=== PATIENT | female | born 1940 | race Caucasian/White ===

== ENCOUNTER → 2017-04-20 13:38 | Outpatient (CLI) | payer MEDICARE, SELFPAY ==
--- NOTE | 2017-04-20 13:40 | ECHOCS_ITS ---
Reason For Study: DYSPNEA Procedure This was a 2D Doppler, Color Flow transthoracic echocardiogram. Exam performed in department. Left Ventricle Normal LV size. Left ventricular systolic function is normal. The estimated ejection fraction is 60 %. No evidence for diastolic dysfunction. No regional wall motion abnormalities noted. Right Ventricle Normal RV size. Normal systolic function. Atria Normal left atrium. Normal right atrium. Mitral Valve Normal mitral valve. Tricuspid Valve Normal tricuspid valve. Mild (1+) tricuspid valve insufficiency. Pulmonary artery systolic pressure is 29 mmHg. Aortic Valve Normal aortic valve. Trisinus/trileaflet aortic valve. Pulmonic Valve Normal pulmonic valve. Great Vessels Normal aortic root. The pulmonary artery is normal size. Normal inferior vena cava. Pericardium/Pleural No pericardial effusion. MMode/2D Measurements & Calculations LVIDd: 3.7 cm IVSd: 0.79 cm Ao root diam: 3.0 cm LVIDs: 2.6 cm LVPWd: 0.91 cm LA dimension: 2.4 cm RVDd: 3.6 cm FS: 30.4 % LAV(MOD-bp): 39.3 ml LVAd ap4: 23.4 cm2 EDV(MOD-sp2): 37.6 ml LAV(MOD-bp) Indexed: 24.3 ml/m2 EDV(MOD-sp4): 65.8 ml EF(MOD-sp2): 26.1 % LAV(MOD-sp2): 40.1 ml EDV(sp4-el): 62.7 ml LAV(MOD-sp4): 33.7 ml LVAs ap4: 16.0 cm2 ESV(MOD-sp4): 34.3 ml ESV(sp4-el): 32.8 ml EF(MOD-sp4): 47.8 % EF(sp4-el): 47.6 % SV(MOD-sp4): 31.5 ml SV(MOD-sp2): 9.8 ml SV(sp4-el): 29.8 ml LA A4 area: 14.6 cm2 RA A4 area: 13.0 cm2 Doppler Measurements & Calculations MV E max ana: 68.3 cm/sec Ao V2 max: 108.6 cm/sec LV V1 max: 77.6 cm/sec MV A max ana: 51.0 cm/sec Ao max P.7 mmHg LV V1 max P.4 mmHg MV E/A: 1.3 PA V2 max: 74.7 cm/sec TR max ana: 242.1 cm/sec TR max P.2 mmHg Interpretation Summary Normal LV size. Left ventricular systolic function is normal. The estimated ejection fraction is 60 %. No evidence for diastolic dysfunction. Structurally normal valves. Ordering Physician: Britney Quinn Referring Physician: CHAS RAYMUNDO Performed By: Sonia Childers RDCS, RVT
== END ==
PROVIDERS: Family Provider Internal Medicine; PCP Internal Medicine; Visit Provider Nurse Practitioner Acute Care
DX: R06.09 Other forms of dyspnea (principal)
CPT/HCPCS: 93306

== ENCOUNTER → 2017-06-19 13:42 | Outpatient (CLI) | payer MEDICARE, SELFPAY ==
--- NOTE | 2017-06-19 13:43 | CT_ITS ---
STUDY: CT CHEST WITHOUT CONTRAST REASON FOR EXAM: Female, 77 years old. Areas of breath hypertension RADIATION DOSAGE (If Supplied By Facility): CTDIvol = ( 6.19 ) mGy, DLP = ( 249.19 ) mGycm TECHNIQUE: Transaxial imaging was performed without the administration of intravenous contrast material. Multiplanar coronal and sagittal images were reformatted. Individualized dose optimization techniques were used for this CT. COMPARISON: October 05, 2015 CT scan chest FINDINGS: There is trace amount of scarring in the lung bases. There are areas of subtle groundglass opacity intermixed with hypodensity suggesting areas of air trapping. There is borderline bronchiectasis. There is minimal emphysematous change present. There is biapical scarring. There is no evidence of focal consolidation pleural effusion or pneumothorax. There is no demonstrated pleural abnormality. There is mild cardiac enlargement there are coronary calcifications. There is a precarinal lymph node measuring 8.8 mm. There is calcification in the left hilum. Normal unenhanced pulmonary arteries. The ascending thoracic aorta measures 3.2 x 1.3 cm. It is partially calcified and tapers towards the arch. There are multi-level degenerative changes of the thoracic spine. There is nonspecific bilateral pelviectasis. There is a minimal hiatal hernia. CT/Chest without Contrast IMPRESSION: Findings are most suggestive of areas of air-trapping hyperinflation of the lungs and chronic obstructive pulmonary disease without evidence of focal consolidation. There is borderline bronchiectasis. Mild cardiac enlargement coronary artery calcification. Bilateral renal pelviectasis recommend follow-up renal ultrasound. Electronically Signed: Tata Cheek MD at 23:46 EDT Tel , Service support ,
== END ==
PROVIDERS: Family Provider Internal Medicine; PCP Internal Medicine; Visit Provider Nurse Practitioner Acute Care
DX: R06.09 Other forms of dyspnea (principal); R06.02 Shortness of breath
CPT/HCPCS: 71250

== ENCOUNTER → 2017-06-22 09:45 | Outpatient (CLI) | payer MEDICARE, SELFPAY ==
--- NOTE | 2017-06-22 09:50 | RAD_ITS ---
STUDY: SNIFF TEST. REASON FOR EXAM: Female, 77 years old. Shortness of breath on exertion. FLUOROSCOPY TIME (if supplied): (0:14) minutes/seconds TECHNIQUE: Inspiratory and expiratory efforts were noted with fluoroscopy. COMPARISON: None. FINDINGS: Hyperinflation. Normal movement of the right and left diaphragms. RAD/Fluoroscopy 1 Hr or Less IMPRESSION: Normal movement of both hemidiaphragms. Electronically Signed: Charles Burgos MD at 10:32 EDT Tel [phone], Service support ,
== END ==
PROVIDERS: Family Provider Internal Medicine; PCP Internal Medicine; Visit Provider Internal Medicine
DX: R06.02 Shortness of breath (principal)
CPT/HCPCS: 76000

== ENCOUNTER → 2017-09-26 12:38 | Outpatient (CLI) | payer MEDICARE, SELFPAY ==
--- NOTE | 2017-09-27 08:34 | PFT ---
INTRODUCTION: The patient is a 77-year-old female that presents for pulmonary function testing secondary to a diagnosis of bronchiectasis. Respiratory therapy reports good patient effort. Bronchodilators were used during testing. INTERPRETATION: Forced expiration spirometry demonstrates no evidence of a large airways obstructive ventilatory defect. There was no significant response to aerosolized bronchodilators. Spirograms are of good quality and plateau gradually indicating slow emptying of the lungs. Body plethysmography was performed and reveals a decreased TLC to 3.87 L, 81% of predicted, indicative of a mild restrictive ventilatory defect. The remainder of the lung volumes are symmetrically reduced. Diffusing capacity by single breath CO is within normal limits at 80% of predicted. IMPRESSION: These pulmonary function studies demonstrate the presence of an isolated mild restrictive ventilatory defect with preserved diffusing capacity.
== END ==
PROVIDERS: Family Provider Internal Medicine; PCP Internal Medicine; Visit Provider Internal Medicine Critical Care Medicine
DX: J47.9 Bronchiectasis, uncomplicated (principal)
CPT/HCPCS: 94060; 94726; 94729

== ENCOUNTER → 2017-11-19 10:43 | Outpatient (CLI) | payer MEDICARE, SELFPAY ==
[2017-11-19 11:16] VITALS: PULSE 70; PULSE 73; PULSE 78; PULSE 81; PULSE 83; PULSE 84; O2SAT 100; O2SAT 95; O2SAT 96; O2SAT 97; O2SAT 98
--- NOTE | 2017-11-19 13:41 | PCM.PSN.6M ---
PSN 6 Minute Walk Test - 6 Minute Walk Test 6 Minute Walk Test: 6 Minute Walk Test PSN:6-Minute Walk Test Start: 11/19/17 11:16 Freq: Status: Active Protocol: RESP.6MINW Document 11/19/17 11:16 LISS (Rec: 11/19/17 11:18 LISS [id number]) 6 Minute Walk Test Date Performed 11/19/17 Time Performed 11:00 Height 5 ft 5 in Weight: 130 lb Weight in Pounds 130.[address]: Lito Medrano Assistive device used: None Pre-test Oxygen Delivery Method Room Air Pulse Ox (%) 100 Pulse Rate (60-100 beats/min) 73 Dyspnea Bing Scale (0-10) 0 Exertion Bing Scale (6-20) 6 1st minute Oxygen Delivery Method Room Air Pulse Ox (%) 97 Pulse Rate (60-100 beats/min) 78 2nd minute Oxygen Delivery Method Room Air Pulse Ox (%) 96 Pulse Rate (60-100 beats/min) 81 3rd minute Oxygen Delivery Method Room Air Pulse Ox (%) 97 Pulse Rate (60-100 beats/min) 83 4th minute Oxygen Delivery Method Room Air Pulse Ox (%) 96 Pulse Rate (60-100 beats/min) 84 5th minute Oxygen Delivery Method Room Air Pulse Ox (%) 98 Pulse Rate (60-100 beats/min) 84 6th minute Oxygen Delivery Method Room Air Pulse Ox (%) 95 Pulse Rate (60-100 beats/min) 83 Dyspnea Bing Scale (0-10) 0.5 Exertion Bing Scale (6-20) 13 Post-test Oxygen Delivery Method Room Air Pulse Ox (%) 95 Pulse Rate (60-100 beats/min) 70 Full Laps Walked 15 Partial Lap, Number of Tiles Walked 25 Total Distance Walked (ft) 910 - Interpretation Interpretation: The patient ambulated 910 feet over the course of 6 minutes beginning on room air without assistive devices or breaks. Pretesting oxygen saturation was noted to be 100% on room air. With ambulation, the esme oxygen saturation was 95%. This represents a significant exertional oxygen desaturation. - Recommendations Recommendations: There is no indication for the use of supplemental oxygen at this time. However, close interval follow-up is recommended, given the degree of oxygen desaturation noted during this study.
== END ==
PROVIDERS: Family Provider Internal Medicine; PCP Internal Medicine; Referring Provider Nurse Practitioner Acute Care; Visit Provider Nurse Practitioner Acute Care
DX: R06.09 Other forms of dyspnea (principal)
CPT/HCPCS: 94618

== ENCOUNTER → 2018-03-22 10:54 | Outpatient (CLI) | payer MEDICARE, SELFPAY ==
[2018-01-17 13:05] VITALS: BMI 22.1
--- NOTE | 2018-03-22 10:56 | ECHOD_ITS ---
Version 2 Reason For Study: MITRAL VALVE PROLAPSE Procedure This was a 2D Doppler, Color Flow transthoracic echocardiogram. The exam was of adequate technical quality. Exam performed in department. Left Ventricle Normal LV size. Left ventricular systolic function is normal. The estimated ejection fraction is 60 %. No evidence for diastolic dysfunction. No regional wall motion abnormalities noted. Right Ventricle Normal RV size. Normal systolic function. Atria Normal left atrium. Normal right atrium. Aneurysmal atrial septum. No doppler evidence for ASD. Mitral Valve Equivocal mitral valve prolapse. Trivial mitral valve insufficiency. Tricuspid Valve Normal tricuspid valve. Trivial tricuspid valve insufficiency. Right ventricular systolic pressure estimated to be 30 mmHg. Aortic Valve Trisinus/trileaflet aortic valve. Normal aortic valve. Pulmonic Valve The pulmonic valve is not well visualized. Trivial pulmonic valve insufficiency. Great Vessels Normal sized aortic root. Pericardium/Pleural No pericardial effusion. MMode/2D Measurements & Calculations LVIDd: 3.8 cm IVSd: 0.77 cm Ao root diam: 2.8 cm LVIDs: 2.7 cm LVPWd: 0.81 cm RVDd: 3.6 cm FS: 28.7 % LAV(MOD-bp): 51.8 ml LVAd ap4: 29.2 cm2 SV(MOD-sp4): 54.4 ml LAV(MOD-bp) Indexed: 31.8 ml/m2 EDV(MOD-sp4): 89.5 ml LAV(MOD-sp2): 58.1 ml EDV(sp4-el): 92.6 ml LAV(MOD-sp4): 39.7 ml LVAs ap4: 16.9 cm2 ESV(MOD-sp4): 35.1 ml ESV(sp4-el): 37.1 ml EF(MOD-sp4): 60.7 % EF(sp4-el): 59.9 % SV(sp4-el): 55.5 ml LA A4 area: 17.1 cm2 LA dimension(2D): 2.8 cm RA A4 area: 14.2 cm2 Time Measurements MV dec time: 0.18 sec Doppler Measurements & Calculations MV E max arya: 95.5 cm/sec Lat Peak E' Arya: 12.4 cm/sec Med Peak E' Arya: 9.2 cm/sec MV A max arya: 69.1 cm/sec E/E' lat: 7.7 E/E' med: 10.4 MV E/A: 1.4 Ao V2 max: 126.9 cm/sec LV V1 max: 93.5 cm/sec PA V2 max: 71.6 cm/sec Ao max P.4 mmHg LV V1 max P.5 mmHg PI end-d arya: 88.5 cm/sec TR max arya: 259.1 cm/sec TR max P.9 mmHg Interpretation Summary Left ventricular systolic function is normal. The estimated ejection fraction is 60 %. Equivocal mitral valve prolapse. Trivial mitral valve insufficiency. Trivial tricuspid valve insufficiency. Trivial pulmonic valve insufficiency. Aneurysmal atrial septum. Right ventricular systolic pressure estimated to be 30 mmHg. No evidence for diastolic dysfunction. Ordering Physician: Apollo Guerrero Referring Physician: Diane Christianson Performed By: Maria Luz Lerner RDCS
== END ==
PROVIDERS: Family Provider Internal Medicine; PCP Internal Medicine; Referring Provider Internal Medicine; Visit Provider Internal Medicine
DX: I34.1 Nonrheumatic mitral (valve) prolapse (principal); I34.2 Nonrheumatic mitral (valve) stenosis
CPT/HCPCS: 93306

== ENCOUNTER → 2018-04-02 12:02 | Outpatient (CLI) | payer MEDICARE, SELFPAY ==
[2018-01-17 13:05] VITALS: BMI 22.1
--- NOTE | 2018-04-02 12:04 | BI_ITS ---
MAMMOGRAPHY - BILATERAL SCREENING REASON FOR EXAM: Female, 78 years old. Routine annual screening examination. PERTINENT HISTORY: Non-contributory. TECHNIQUE: Digital bilateral breast lorin (3D mammographic acquisition) in the CC and MLO projections. 2-D mediolateral oblique (MLO) and craniocaudad (CC) views of both breasts were obtained. CAD: Full Field Digital Mammography with Computer Added Detection was performed. COMPARISON: Comparison is made with prior study dated May 24, 2016 and May 04, 2014. FINDINGS: Breast Composition: The breasts are extremely dense, which lowers the sensitivity of mammography. There are no dominant masses or suspicious calcifications. No other significant abnormalities are identified. There has been no significant change since the prior study. BI/SCREENING MAMM (CAD), BILAT IMPRESSION: Stable bilateral screening mammogram. Yearly follow-up mammogram recommended. (A) ASSESSMENT CATEGORY: BIRADS Category 1: Negative. A letter regarding these results will be sent to the patient by the facility within 30 days. Approximately 10% of breast cancers are not detected by mammography. A normal mammogram should not delay biopsy of a clinically suspicious abnormality. [id number] Electronically Signed: Charles Burgos MD at 15:07 EST , Service support ,
== END ==
PROVIDERS: Family Provider Internal Medicine; PCP Internal Medicine; Referring Provider Internal Medicine; Visit Provider Internal Medicine
DX: Z12.31 Encounter for screening mammogram for malignant neoplasm of breast (principal)
CPT/HCPCS: 77063; 77067

== ENCOUNTER → 2018-07-15 14:44 | Outpatient (CLI) | payer MEDICARE, SELFPAY ==
[2018-07-15 13:59] VITALS: BMI 23.0
--- NOTE | 2018-07-15 14:54 | CPS ---
Did outpatient teaching & cleaning of PEP device.
== END ==
PROVIDERS: Family Provider Internal Medicine; PCP Internal Medicine; Referring Provider Nurse Practitioner Acute Care; Visit Provider Nurse Practitioner Acute Care
DX: R06.02 Shortness of breath (principal)
CPT/HCPCS: 94667

== ENCOUNTER → 2019-01-08 12:21 | Outpatient (CLI) | payer MEDICARE, SELFPAY ==
[2018-07-15 13:59] VITALS: BMI 23.0
[2018-10-17 10:20] VITALS: BMI 23.5
[2019-01-08 12:28] VITALS: PULSE 70; PULSE 72; PULSE 78; PULSE 85; PULSE 86; PULSE 87; O2SAT 90; O2SAT 92; O2SAT 93; O2SAT 94; O2SAT 98
--- NOTE | 2019-01-08 15:08 | PCM.PSN.6M ---
PSN 6 Minute Walk Test - 6 Minute Walk Test 6 Minute Walk Test: 6 Minute Walk Test PSN:6-Minute Walk Test Start: 01/08/19 12:40 Freq: Status: Active Protocol: RESP.6MINW Document 01/08/19 12:28 SMB (Rec: 01/08/19 12:43 SMB [id number]) 6 Minute Walk Test Date Performed 01/08/19 Time Performed 12:28 Height 5 ft 5 in Weight: 63.503 kg Weight in Pounds 140.[address]: Britney Quinn Assistive device used: None Pre-test Oxygen Delivery Method Room Air Pulse Ox (%) 98 Pulse Rate (60-100 beats/min) 70 Dyspnea Bing Scale (0-10) 0.5 Exertion Bing Scale (6-20) 7 1st minute Oxygen Delivery Method Room Air Pulse Ox (%) 98 Pulse Rate (60-100 beats/min) 85 2nd minute Oxygen Delivery Method Room Air Pulse Ox (%) 94 Pulse Rate (60-100 beats/min) 87 3rd minute Oxygen Delivery Method Room Air Pulse Ox (%) 93 Pulse Rate (60-100 beats/min) 86 4th minute Oxygen Delivery Method Room Air Pulse Ox (%) 92 Pulse Rate (60-100 beats/min) 87 5th minute Oxygen Delivery Method Room Air Pulse Ox (%) 90 Pulse Rate (60-100 beats/min) 78 6th minute Oxygen Delivery Method Room Air Pulse Ox (%) 90 Pulse Rate (60-100 beats/min) 86 Post-test Oxygen Delivery Method Room Air Pulse Ox (%) 98 Pulse Rate (60-100 beats/min) 72 Dyspnea Bing Scale (0-10) 1 Exertion Bing Scale (6-20) 12 Full Laps Walked 16 Partial Lap, Number of Tiles Walked 9 Total Distance Walked (ft) 953 - Interpretation Interpretation: The patient was able to ambulate 953 feet over the course of 6 minutes on room air with no assistive devices or breaks. The patient did have significant desaturation from a baseline of 98%, to as low as 90% with ambulation. No significant tachycardia was noted. These findings are consistent with a respiratory limitation exercise tolerance. - Recommendations Recommendations: No supplemental oxygen is indicated at this time.
== END ==
PROVIDERS: Family Provider Internal Medicine; PCP Internal Medicine; Referring Provider Nurse Practitioner Acute Care; Visit Provider Nurse Practitioner Acute Care
DX: R06.02 Shortness of breath (principal)
CPT/HCPCS: 94618

== ENCOUNTER → 2019-01-10 13:07 | Outpatient (CLI) | payer MEDICARE, SELFPAY ==
[2018-07-15 13:59] VITALS: BMI 23.0
[2018-10-17 10:20] VITALS: BMI 23.5
--- NOTE | 2019-01-11 09:23 | PFTCOMP_ITS ---
COMPLETE PULMONARY FUNCTION TEST INTERPRETATION Brief HPI: Patient is a 78 year old female, currently under the care of myself, who presents to [facility] for complete pulmonary function tests secondary to diagnosis of dyspnea. Respiratory therapist reports good effort and reproducible results. Interpretation: Forced expiration spirometry shows no large airways obstructive ventilatory defect with an FEV1 of 86% predicted. There is no significant bronchodilator response by strict ATS criteria. Spirograms are of good quality and plateau normally. The respiratory flow volume loop shows a normal pattern. Lung volumes by body plethysmography show a normal total lung capacity at 4.75 L, 98% predicted. All other lung volumes are within normal limits. Diffusion capacity by carbon monoxide is normal at 74% predicted. The airway resistance is normal. Compared to previous pulmonary function tests from 09/26/2017, there is been a significant improvement in lung volumes. Impression: These pulmonary function tests have normalized compared to 2018.
[2019-01-16 06:29] VITALS: BMI 23.4
== END ==
PROVIDERS: Family Provider Internal Medicine; PCP Internal Medicine; Referring Provider Nurse Practitioner Acute Care; Visit Provider Nurse Practitioner Acute Care
DX: R06.02 Shortness of breath (principal)
CPT/HCPCS: 94060; 94726; 94729

== ENCOUNTER → 2019-04-03 12:40 | Outpatient (CLI) | payer MEDICARE, SELFPAY ==
[2019-01-16 06:29] VITALS: BMI 23.4
--- NOTE | 2019-04-03 12:44 | BI_ITS ---
MAMMOGRAPHY - BILATERAL SCREENING REASON FOR EXAM: Female, 79 years old. Routine annual screening examination. PERTINENT HISTORY: Non-contributory. TECHNIQUE: Digital bilateral breast juma (3D mammographic acquisition) in the CC and MLO projections. 2-D mediolateral oblique (MLO) and craniocaudad (CC) views of both breasts were obtained. CAD: Full Field Digital Mammography with Computer Added Detection was performed. COMPARISON: Comparison is made with prior study dated April 02, 2018 and May 24, 2016. FINDINGS: Breast Composition: The breasts are extremely dense, which lowers the sensitivity of mammography. There are no dominant masses or suspicious calcifications. No other significant abnormalities are identified. There has been no significant change since the prior study. BI/SCREEN MAMM (CAD) W/JUMA BILAT IMPRESSION: Stable bilateral screening mammogram. Yearly follow-up mammogram recommended. (A) ASSESSMENT CATEGORY: BIRADS Category 1: Negative. A letter regarding these results will be sent to the patient by the facility within 30 days. Approximately 10% of breast cancers are not detected by mammography. A normal mammogram should not delay biopsy of a clinically suspicious abnormality. [id number] Electronically Signed: Charles Burgos, at 15:13 EST , Service support ,
--- NOTE | 2019-04-03 12:56 | BD_ITS ---
STUDY: DUAL ENERGY X-RAY ABSORPTIOMETRY / DXA REASON FOR EXAM: Female, 79 years old. Age of marianne- 49. Patient is 138.5# and 63.75 and quot; a loss of 1.5-2 and quot; per patient. Past hx of taking an HRT but for less than a year. Past hx of using fosamax. Takes calcium and a multi-vit. Exercises a little. TECHNIQUE: Bone Mineral Density (BMD) measurements of lumbar spine and bilateral hips were obtained. COMPARISON: Comparison is made with prior examination dated November 14, 2016. FINDINGS: Lumbar Spine (L1-L4): g/cm2 (1.050) / T-score (-1.1) / Z-score (0.7) Findings are suggestive of osteopenia with a low fracture risk. Left Femur Total: g/cm2 (0.851) / T-score (-1.2) / Z-score (0.7) Left Femoral Neck: g/cm2 (0.813) / T-score (-1.6) / Z-score (0.5) Right Femur Total: g/cm2 (0.810) / T-score (-1.6) / Z-score (0.4) Right Femoral Neck: g/cm2 (0.808) / T-score (-1.7) / Z-score (0.4) The T-Scores on the most recent prior examination were: Lumbar Spine (L1-L4): There has been worsening of bone density since the previous examination. Left Femur Total: which represents a worsening of 3.1%. Right Femur Total: which represents a worsening of 7%. BD/Dexa Bone Density Study IMPRESSION: The patient is considered osteopenic as outlined below according to World Gilbert Organization (WHO) criteria with a moderate fracture risk. There has been worsening of bone density since the previous examination. Reference Information: The T-score is the number of standard deviations above or below the standard which is normal for young adults at their peak bone mineral density. The World Health Organization (WHO) interprets the T-scores as follows: Above -1 Normal bone density Between -1 and -2.5 Osteopenia Equal to / or below -2.5 Osteoporosis As a practical clinical guideline, osteopenia may be graded as follows: Mild -1 through -1.5 Moderate -1.6 through -2.0 Severe -2.1 through -2.4 The Z-score is the number of standard deviations above or below age-matched controls. A Z-score of less than -1.5 would be considered abnormal. References: 1. NIH Osteoporosis and Related Bone Diseases http://www.osteo.org 2. International Society for Clinical Densitometry http://www.iscd.org 3. National Osteoporosis Foundation http://www.nof.org Electronically Signed: Charles Burgos, at 11:03 EST , Service support ,
== END ==
PROVIDERS: PCP Internal Medicine; Referring Provider Internal Medicine; Visit Provider Internal Medicine
DX: Z12.31 Encounter for screening mammogram for malignant neoplasm of breast (principal); Z78.0 Asymptomatic menopausal state
CPT/HCPCS: 77063; 77067; 77080

== ENCOUNTER → 2019-12-17 12:50 | Outpatient (CLI) | payer MEDICARE, SELFPAY ==
[2019-08-14 09:43] VITALS: BMI 23.0
--- NOTE | 2019-12-17 18:05 | ST.MBS ---
Modified Barium Swallow - Patient Information Study Date: 12/17/19 Study Time: 12:50 Direct Billable Minutes: 60 Total Minutes procedure & reportin Diagnosis: Dysphagia (R13.12) Referring Physician: Diane Christianson Reason for Referral: The Patient is a 79 year old female referred for a modified barium swallow (MBS) study to objectively assess the Patients oropharyngeal swallow function under fluoroscopy secondary to the diagnosis of Parkinson?s disease, with reported globus sensation following ingestion of solid textures combined with intermittent coughing / throat clearing occurring post meal with sensations of stasis and restricted breathing; reports onset over the past few months that has gradually increase in regards to severity. Medical History: Parkinson disease, dyspnea on exertion, obstructive sleep apnea, shortness of breath, chronic fatigue, post-nasal drip, unspecified chest pain, coronary artery disease, atherosclerotic heart disease of [place] coronary artery without angina pectoris, non-rheumatic mitral valve stenosis, nonrheumatic mitral valve prolapse, paroxysmal atrial tachycardia, essential hypertension, palpitations, premature atrial contractions, asymptomatic premature ventricular contractions, premature ventricular contractions, pure hypercholesterolemia, hyperlipidemia, long-term use of high-risk medication, history of shoulder surgery. - Penetration-Aspiration Scale Score Thin Liquid via teaspoon Result: 1= does not enter airway Thin Liquid Result: 1= does not enter airway Thin Liquid Trial 2 Result: 1= does not enter airway Thin Liquid Trial 3 Result: 1= does not enter airway Thin Liquid Trial 4 Result: 2= enter airway/above vocal folds/ejected Pudding Result: 1= does not enter airway Cookie Result: 1= does not enter airway Thin Liquid Trial 5 Result: 3= enters airways/above vocal folds/not ejected Thin Liquid Trial 6 Result: 1= does not enter airway - Oral Phase Labial Seal: No Labial Escape Tongue Control During Bolus Hold: Posterior escape of less than half of bolus Bolus Preparation/Mastication: Timely and efficient chewing and mashing Bolus Transport/Lingual Motion: Repetitive/disorganized tongue motion Oral Residue: Residue collection on oral structures - Pharyngeal Phase Initiation of Pharyngeal Swallow: Bolus head at posterior laryngeal surgace of epiglottis Soft Palate Elevation: No bolus between soft palate and pharyngeal wall Laryngeal Elevation: Partial superior movement thyroid cart/partial apprx aryt-epig petiole Anterior Hyoid Excursion: Complete anterior movement Epiglottic Movement: Complete inversion Laryngeal Vestibule Closure at Height of Swallow: Incomplete; narrow column of air/contrast in laryngeal vestibule Pharyngeal Stripping Wave: Present - complete Pharyngoesophageal Segment Opening: Complete distension and complete duration; no obstruction of flow Tongue Base Retraction: Trace column of contrast between tongue base & post. pharyngeal wall Pharyngeal Residue: Trace residue within or on pharyngeal structures - Esophageal Phase Esophageal Clearance: Esophageal retention w/ retrograde flow through pharyngoesophageal seg - Diagnosis/Impression Diagnosis: Dysphagia (R13.12, 13.14) Impression: The patient presents with abnormal esophageal phase findings requiring further workup, along with mild oropharyngeal dysphagia (DSRS: 2; DCS: D0) with intermittent transient shallow penetration of thin secondary to the diagnosis of Parkinson?s disease. It appears as though her symptoms are associated with the abnormal esophageal phase findings observed during the current assessment; I would further consider additional assessment of the patients esophageal functioning (upper GI study / barium swallow study), as it is outside the scope of the modified barium swallow study to objectively assess esophageal functioning; She may additionally require further workup via gastroenterology. - Recommendations Comment: DIET TEXTURE RECOMMENDATIONS: regular textured (IDDSI: 7), thin liquid diet (IDDSI: 0) diet RECOMMENDED COMPENSATORY STRATEGIES: consider cutting tougher textures into bite sized pieces, reduced bolus volume / rate of ingestion, liquid chaser at reasonable intervals, seated upright at 90 degrees during PO intake, remain upright for 60 minutes post meal (reflux precaution); avoid lying down for 3 hours after consuming a meal Recommend Repeat Modified Barium Swallow: No Need for Skilled Speech Therapy Services: Yes Recommended Referrals: GI Consult Education Completed: 1. Described result of evaluation., 2. Pt understands evaluation & agrees with goals and treatment plan., 4. Family/caregivers understand evaluation & agree w/ goals & tx plan. - Status Active ST Patient: Not Active - Contact Information [facility] Speech Therapy:: Clif Pinedo M.A., [employer], CBIS MBSImP Certified, LSVT Certified [facility] Speech-Language Pathology Department Email: [email or web address]
== END ==
PROVIDERS: PCP Internal Medicine; Referring Provider Internal Medicine; Visit Provider Internal Medicine
DX: R13.10 Dysphagia, unspecified (principal)
CPT/HCPCS: 74230; 92611

== ENCOUNTER → 2019-12-26 13:01 | Outpatient (CLI) | payer MEDICARE, SELFPAY ==
[2019-08-14 09:43] VITALS: BMI 23.0
--- NOTE | 2019-12-26 13:09 | CDU_ITS ---
Reason For Study: Carotid artery disease Rt. Velocities/BP Lt. Velocities/BP Prox CCA 77.3/17.3 cm/sec. Prox CCA 71.1/14.5 cm/sec. Mid CCA 78.6/13.4 cm/sec. Mid CCA 86.3/16.3 cm/sec. Dist CCA 70.7/10.2 cm/sec. Dist CCA 75.9/15.4 cm/sec. Prox ICA 44.3/12.4 cm/sec. Prox ICA 41.9/17.3 cm/sec. Mid ICA 62.9/16.8 cm/sec. Mid ICA 68.3/23 cm/sec. Dist ICA 80.5/21.2 cm/sec. Dist ICA 64.5/18.2 cm/sec. Rt. ICA/CCA = 1.0. Lt. ICA/CCA = 0.9. Prox ECA 80.5/10.2 cm/sec. Prox ECA 62.6/10.7 cm/sec. Rt. Vert. 37.1/8.8 cm/sec. Lt. Vert. 33/8 cm/sec. Right Extracranial There is homogeneous, smooth atherosclerotic plaque noted in the right common carotid artery. There is homogeneous, smooth atherosclerotic plaque noted in the right internal carotid artery. There is homogeneous, smooth atherosclerotic plaque noted in the right external carotid artery. Antegrade flow is noted in the right vertebral artery. Left Extracranial There is homogeneous, smooth atherosclerotic plaque noted in the left common carotid artery. There is homogeneous, smooth atherosclerotic plaque noted in the left internal carotid artery. There is homogeneous, smooth atherosclerotic plaque noted in the left external carotid artery. Antegrade flow is noted in the left vertebral artery. Procedure Carotid Duplex [id number]. This is a Carotid Duplex examination using B-mode, color flow and specral Doppler. Exam performed in department. Interpretation Summary Mild (<50%) stenosis right extracranial internal carotid. Mild (<50%) stenosis left extracranial internal carotid. Flow within the vertebral arteries is antegrade bilaterally. Ordering Physician: Diane Christianson Referring Physician: Diane Christianson Performed By: Ciera Salazar RVT
== END ==
PROVIDERS: PCP Internal Medicine; Referring Provider Internal Medicine; Visit Provider Internal Medicine
DX: I65.23 Occlusion and stenosis of bilateral carotid arteries (principal); G47.33 Obstructive sleep apnea (adult) (pediatric)
CPT/HCPCS: 93880

== ENCOUNTER → 2019-12-29 09:26 | Outpatient (CLI) | payer MEDICARE, SELFPAY ==
[2019-08-14 09:43] VITALS: BMI 23.0
--- NOTE | 2019-12-29 09:28 | RAD_ITS ---
STUDY: X-RAY - ESOPHAGUS (BARIUM SWALLOW) WITH FLUOROSCOPY REASON FOR EXAM: Female, 79 years old. DIFFICULTY WITH BREATHING AND SWALLOWING TECHNIQUE: 20 view(s) of the esophagus were obtained following swallowing of barium. FLUOROSCOPY TIME (if supplied): (0:46) minutes/seconds COMPARISON: None. FINDINGS: There is no demonstrated esophageal foreign body. There is tertiary contractions in the mid esophagus. There is delayed emptying of the esophagus into the stomach suggestive of a narrowing of the gastroesophageal junction. The patient was unable to ingest a 12 mm tablet of barium. There is atherosclerotic calcification of the aortic arch with tortuosity of the descending aorta. Normal visualized pulmonary parenchyma. There are diffuse degenerative changes of the visualized thoracic spine. RAD/Esophagus Dual Contrast IMPRESSION: Tertiary contractions of the mid esophagus. Narrowing of the gastroesophageal junction. Endoscopic correlation is recommended. Electronically Signed: Charles Burgos, at 13:06 EST , Service support ,
== END ==
PROVIDERS: PCP Internal Medicine; Referring Provider Internal Medicine; Visit Provider Internal Medicine
DX: R13.10 Dysphagia, unspecified (principal)
CPT/HCPCS: 74220; 74221

== ENCOUNTER 2020-01-12 10:00 | Outpatient (RCR) | payer MEDICARE, SELFPAY ==
[2019-08-14 09:43] VITALS: BMI 23.0
--- NOTE | 2019-12-19 14:00 | SOAP_ITS ---
REASON FOR REFERRAL: The patient is a 79 year old female referred for a clinical assessment of the swallow function at [facility] on 12/19/2019 due to persistent dysphagia and dysarthria secondary to the diagnosis of Parkinson?s disease. The patient?s daughter was present for the evaluation, and provided details regarding the patient?s past medical history, current communication abilities, and current level of functioning. The patient reports occasional post prandial substernal pressure along with frequent globus sensation following consumption of solid textures that increases as the meal persists, along with intermittent eructation (belching) without significant relief of her sensations of stasis. This is reportedly followed by persistent throat clearing and coughing towards the mid portions of meals and persist afterwards. She reports infrequent bolus regurgitation to the oral cavity, though when present this does not tend to hold an acidic quality. She reports difficulties with respiration over the past few years (feeling short of breath) with frequent mucous production particularly in the morning, with her daughter reporting no definitive finding to date. She has experienced an unintentional weight loss of around 20lbs over the past 6 months, though she initially attributed this to stress associated with the recent passing of her , which she was the primary caregiver for. She denies any suboptimal intake behaviors (tachyphagia, bolus bolting). Both deny any current or previous issues with aspiration related pulmonary complications, to include pneumonia, bronchitis, or unexplained asthma symptoms. Both report a gradual decline in speech intelligibility that is noted more so by her family, which is common in the earlier stages of Parkinson?s prior to a more moderate to severe dysarthria. she is aware of the gradual shift in communication abilities, as she knows multiple individuals with Parkinson?s. She has yet to undergo any dedicated intervention targeting dysarthria prior to this cycle. She appears cognitively intact, with both reporting recent cognitive assessment completed through her primary care physician suggesting a reduction in processing speed (bradyphrenia; common in those diagnosed with Parkinson?s disease), affect appears appropriate. She is fully ambulatory; no difficulties with posture maintenance. She appears appropriately nourished, though is nearing on the frail side; appears well kept; reports she is independent for all ADLs; does not currently drive (though does intend on resuming at some point). MEDICAL HISTORY: Parkinson disease, dyspnea on exertion, obstructive sleep apnea, shortness of breath, chronic fatigue, post-nasal drip, unspecified chest pain, coronary artery disease, atherosclerotic heart disease of tetlin coronary artery without angina pectoris, non-rheumatic mitral valve stenosis, nonrheumatic mitral valve prolapse, paroxysmal atrial tachycardia, essential hypertension, palpitations, premature atrial contractions, asymptomatic premature ventricular contractions, premature ventricular contractions, pure hypercholesterolemia, hyperlipidemia, long-term use of high-risk medication, history of shoulder surgery. MEDICATIONS: Aspirin [Aspirin, Baby] 81 mg PO DAILY@0800 Rotigotine [Neupro] 6 mg TRANSDERM. DAILY carbidopa 25 mg-levodopa 100 mg tablet 1 tab PO TID albuterol sulfate HFA 90 mcg/actuation aerosol inhaler 2 puff INHALATION Q6H PRN lisinopril 5 mg tablet 5 mg PO DAILY 90 Days #90 tab sertraline 25 mg tablet 25 mg PO DAILY 30 Days #30 tab metoprolol tartrate 25 mg tablet 12.5 mg PO .COMPLEX #0 tab PEP device See Rx Instructions .ROUTE .MEDSUPPLY #1 ea lorazepam 0.5 mg tablet 0.5 mg PO QD-BID PRN PREVIOUS MODIFIED BARIUM SWALLOW STUDY: 12/17/2019 MBS revealed abnormal esophageal phase findings requiring further workup, along with mild oropharyngeal dysphagia (DSRS: 2; DCS: D0) with intermittent transient shallow penetration of thin liquids ADDITIONAL OBJECTIVE ASSESSMENT RESULTS: 01/01/2018 6-minute walk test revealed significant exertional oxygen desaturation. 09/27/2017 pulmonary functions test demonstrates the presence of an isolated mild restrictive ventilatory defect with preserved diffusing capacity. 01/08/2019 6-minute walk test findings consistent with a respiratory limitation exercise tolerance. 01/11/2019 pulmonary functions test revealed results that have normalized compared to 2018. 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 SUPPLEMENTARY DYSPHAGIA ASSESSMENT RESULTS (SCALES / PROM): EATING ASSESSMENT TOOL ? 10 (EAT-10): EAT-10 TOTAL SCORE: 19 EAT-10 INTERPRETATION: a score of 3+ may represent swallowing problems; an individual with a score >15 is 2.4x more likely to aspirate CLINICAL ASSESSMENT OF SWALLOW FUNCTION (QUANTITATIVE): CLINICAL ASSESSMENT OF DYSPHAGIA IN NEURODEGENERATION (CADN): ANAMNESIS: SCORE: 3 SEVERITY: moderate INTAKE: SCORE: 2 SEVERITY: moderate CADN TOTAL SCORE: 3 CADN SCORE DESCRIPTION: severe signs of dysphagia with high aspiration risk OBJECTIVE ASSESSMENT OF SWALLOW FUNCTION (QUANTITATIVE ? PER TRIAL): PENETRATION / ASPIRATION SCALE (SCORE): Thin liquid - 5 mL tsp.: 1 Thin liquids via cup (single sip): 1 Thin liquids via cup (single sip): 1 Thin liquids via cup (single sip): 1 Thin liquids via cup (sequential swallows): 2 Pudding via spoon: 1 Regular textured cookie: 1 Thin liquids via straw (sequential swallows): 3 Thin liquids via straw (sequential swallows): 1 OBJECTIVE ASSESSMENT OF SWALLOW FUNCTION (QUANTITATIVE ? AGGREGATE): MODIFIED BARIUM SWALLOW IMPAIRMENT PROFILE (MBSImP) LABIAL SEAL: 0 (of 4) no labial escape TONGUE CONTROL: 2 (of 3) posterior escape < 50% BOLUS PREPARATION / MASTICATION: 0 (of 3) timely and efficient BOLUS TRANSPORT / LINGUAL MOTION: 3 (of 4) repetitive / disorganized motion ORAL RESIDUE: 2 (of 4) residue collection on oral structures INITIATION OF PHARYNGEAL SWALLOW: 2 (of 4) posterior surface of epiglottis SOFT PALATE ELEVATION: 0 (of 4) no bolus between soft palate & pharyngeal wall LARYNGEAL ELEVATION: 1 (of 3) partial superior movement / approximation ANTERIOR HYOID EXCURSION: 0 (of 2) complete movement EPIGLOTTIC MOVEMENT: 0 (of 2) complete inversion LARYNGEAL VESTIBULE CLOSURE: 1 (of 2) incomplete closure PHARYNGEAL STRIPPING WAVE: 0 (of 2) present / complete PHARYNGEAL CONTRACTION (A/P): 0 (of 3) complete PE SEGMENT OPENIN (of 3) complete distension / duration; no obstruction TONGUE BASE RETRACTION: 1 (of 4) trace column of contrast PHARYNGEAL RESIDUE: 1 (of 4) trace residue ESOPHAGEAL BOLUS CLEARANCE: 3 (of 4) esophageal retention with retrograde flow through PES BOLUS RESIDUE SCALE (BRS): BRS SCORE: 1 (of 6) BRS SCORE DESCRIPTION: no residue OBJECTIVE ASSESSMENT OF SWALLOW FUNCTION (SEVERITY GRADING): DYSPHAGIA SEVERITY RATING SCALE (DSRS): DSRS CLASSIFICATION: 2 (of 6) DSRS SEVERITY: mild DSRS CLASSIFICATION CHARACTERISTICS: oropharyngeal dysphagia present, which can be managed by specific swallow suggestions; slight modification in consistency of diet may be indicated. DYSPHAGIA CLASSIFICATION SCALE (DCS): DCS CLASSIFICATION: D0 DCS SEVERITY: normal DCS CLASSIFICATION CHARACTERISTICS: without stasis or food consistency restrictions OBJECTIVE ASSESSMENT OF SWALLOW FUNCTION (QUALITATIVE): ORAL PREPARATORY PHASE: sufficient mastication rate and quality; sufficient anterior oral containment during oral manipulation; preserved management of breathing / bolus formation without disrupted E ? S ? E pattern ORAL TRANSITIONAL PHASE: overall sufficient bolus transportation, though noted brief discoordination of lingual movements noted prior to transient reflux of contents retained within the esophagus, disrupting the normal swallow pattern and resulting in premature posterior bolus loss of less than 50% of liquid bolus contributing to transient penetration event; sufficient oral clearance PHARYNGEAL PHASE: age appropriate pharyngeal phase synchrony; mild reduction in hyolaryngeal excursion with inconsistent laryngeal vestibule pressure generated to expel penetrated material (1 occasion, very mild); appropriate pharyngeal motility; appropriate velopharyngeal functioning; ESOPHAGEAL PHASE: abnormal esophageal phase findings with noted delayed esophageal clearance, with noted reflux back to the laryngeal vestibule, along with post intake throat clearing and reports of globus sensation that is reflective of her reported symptomology; further workup is indicated CONTRIBUTING / COMPLICATING FACTORS AND NOTABLE FINDINGS: 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 10 (VHI-10) VHI?10 SCORE: 16 VHI?10 SEVERITY: moderate alteration COGNITIVE COMMUNICATION ASSESSMENT RESULTS (QUANTITATIVE): [place] DYSARTHRIA ASSESSMENT TOOL (N-RONALDO) INTELLIGIBILITY: PERCEIVED INTELLIGIBILITY: intelligible with some difficulty NOTABLE CHARACTERISTICS: loudness (hypophonia); hypernasality; reduced speech rate; reduced percentage intelligible (75-90%) RESPIRATION: OBSERVED RESPIRATION CHARACTERISTICS: normal PHONATION: LOUDNESS: soft PITCH: variable QUALITY: breathy ABILITY TO SUSTAIN VOLUME: inconsistent PITCH GLIDE: ABILITY: variable PITCH RANGE: reduced PITCH CONTROL: adequate RESONANCE: OBSERVATION: hypernasal WORD PRODUCTION (HYPONASALITY):no abnormalities observed WORD PRODUCTION (HYPERNASALITY): abnormal PROSODY: OBSERVATION: reduced ability to vary stress / intonation ARTICULATION: RATE OF SPEECH: variable PHRASE LENGTH: short GROPING BEHAVIORS: not present PRECISION: regular COMMUNICATION ASSESSMENT RESULTS (QUALITATIVE): EXPRESSIVE LANGUAGE FUNCTIONING: her expressive profile suggests a milder hypokinetic dysarthria, with a mild reduction in her rate of speech; weak vocal intensity/volume (hypophonia); somewhat mono-pitch, mono-loudness, with occasional articulatory undershoot; mild facial masking; mild hypernasality; no aphasia, anomia, apraxia, or alexia appreciated. COGNITIVE COMMUNICATION ASSESSMENT RESULTS (SEVERITY GRADING): FUNCTIONAL COMMUNICATION MEASURE (FCM) ?VOICE PRODUCTION FCM LEVEL: 2 (of 6) SEVERITY: mild-moderate LEVEL DESCRIPTION: voice is optimal approximately 75% of the time with inconsistent ability to self-monitor and change; voice continues to call attention to itself as being different. INTERVENTION RECOMMENDATIONS AND CONSIDERATIONS: It appears as though her symptoms are associated with the abnormal esophageal phase findings observed during the current assessment; I would further consider additional assessment of the patients esophageal functioning (upper GI study / barium swallow study), as it is outside the scope of the modified barium swallow study to objectively assess esophageal functioning; She may additionally require further workup via gastroenterology. INTERVENTION RECOMMENDATIONS AND CONSIDERATIONS: The patient would benefit from skilled speech-language intervention targeting diet texture management and training / implementation of recommended compensatory strategies; training and implementation of recommended oropharyngeal strengthening exercises to facilitate improved and maintained laryngeal vestibule closure / pressure; patient and caregiver education regarding dysphagia associated with Parkinson?s disease; and training / implementation of recommended expressive communication strategies targeting hypokinetic dysarthria / hypophonia (increased vocal intensity) with a modified Peter Cantu Voice Therapy approach. POST ASSESSMENT EDUCATION: The results and recommendations were discussed with the patient and the patient?s family immediately following completion of the assessment, with the patient and the patient?s family verbalizing understanding and agreement with all recommendations and education provided. We discussed factors impacting effects of aspiration, to include: the quantity of aspiration, the depth of aspiration (trachea or distal airways), and the physical properties of the aspirate. We discussed consequences of oropharyngeal dysphagia, to include pulmonary complications from tracheobronchial aspiration; potential for airway obstruction / asphyxiation; inadequate oral intake because of dysphagia; reduced liquid intake resulting in dehydration; reduced caloric intake resulting in unintentional and potentially medically complicating loss of weight; impairment in mental and physical condition to include depression and deterioration in the quality of life, higher risk for social isolation / anxiety / depression, increased disability rates, and lengthening of healing; complications in overall course of care with later discharge from acute admissions / increased length of hospitalizations, and overall worse rehabilitation outcomes; and increased risk for mortality / . DIET TEXTURE RECOMMENDATIONS: Will recommend a regular textured (IDDSI: 7), thin liquid diet (IDDSI: 0) diet RECOMMENDED COMPENSATORY STRATEGIES: Consider cutting tougher textures into bite sized pieces, reduced bolus volume / rate of ingestion, liquid chaser at reasonable intervals, seated upright at 90 degrees during PO intake, remain upright for 60 minutes post meal (reflux precaution); avoid lying down for 3 hours after consuming a meal FUNCTIONAL OUTCOMES: OUTCOME 1: the patient will tolerate the least restrictive means of nutrition to facilitate adequate hydration / nutrition with optimum safety and efficiency of swallowing function during P.O. intake without overt signs and symptoms of aspiration. OUTCOME 2: the patient will demonstrate and utilize recommended oropharyngeal strengthening exercises to facilitate improved laryngeal vestibule closure, with minimal cueing and prompting provide by the clinician, across 2 out of 3 sessions. OUTCOME 3: the patient will independently demonstrate and utilize recommended compensatory articulation techniques (increased vocal intensity, reduced rate of speech, over articulation) to facilitate increased expressive communication abilities in the home and social environments. OUTCOME 4: goal adjustment as needed Clif Pinedo M.A., CCC-NAIL ASSEMBLY MACHINE OPERATOR, CBIS MBSImP Certified, LSVT Certified [facility] Speech-Language Pathology Department Email: [email or web address]
--- NOTE | 2019-12-23 13:29 | HP.PTEVAL ---
Patient's Visit Information LAZARO STEELE is a 79 year old F referred to Physical Therapy by Dr. Diane Christianson MD with a diagnosis of Parkinsons Disease. Date of Evaluation: 12/19/19 Physical Therapist: Isaac Erwin DPT - Visit Plan Frequency: 2x /Week Duration: 4 Weeks Plan: Start with large movements working on progression of stability and control. Progress walking program to increase overall endurance and stability. - Subjective Pt. is here today for her initial evaluation with diagnosis of Parkinson's Disease. Pt. reports having been diagnosed for ~5 years. She reports havinga recent change in medication, but is still taking Levadopa. She does live by her self, but her daughter comes after few months to help out and check on her. She denies pain. No recent falls. She does not use a device. She is not driving curremtly. She does well most of the time, but does have issues when her medication start to wear off. Mostly in AMs is when she is hvaing difficutly. Pt. does work out in her garden at times, when she is doing well. Her greatest issue is with her breathing. She reports being short of breath at times and with certain activies. She is also working with ST to determine if this has a play in this area as well. Pt. is hopeful to increase stability, balance and endurance allowing her to walk further and complete all ADLs without limitations. - Objective POSTURE: pt. has decent posture in stance. Minimal thoracic kyphosis noted, slight FH posture. PALPATION: Normal throughout. NEURO: normal throughout, normal sensation, normal DTR of BLEs. ROM: Pt. has overall good ROM. full lumbar ROM, full HS length, full hip flexor length. Pt. does have some stiffness with min loss in thoracic rotation. MMT: Pt. has 4/5 strength throuhgout BLEs. Pt. reports no pain wth testing. Core strength- fair-. GAIT: Pt. walks without AD, but does have slight rigid posture, minimal arm swing. Pt. had slight reduced step length bilatearlly. Pt. walked 375ft. prior to needing a rest period. 5 rep sit to stand test- 16.2sec without use of UEs. BALANCE: TU.11sec - Balance Scores Functional Gait Assessment Score: 18 % Disability: 40.0000 CATSIB Score (Max score 120 seconds): 77 - Goals Goal 1:: LTG: Pt. to be I with HEP. Goal Time Frame: 4-6 Weeks Goal 2:: STG: Pt. to increase walking tolerance to 500+ feet allowing for increased ability to walkin in community and stores Goal Time Frame: 2-4 Weeks Goal 3:: LTG: Pt. to increase TUG score to <8sec without use of AD. Goal Time Frame: 4-6 Weeks Goal 4:: LTG: Pt. to increase FGA score to >21 indicating reduce risk for future falls. Goal Time Frame: 4-6 Weeks Goal 5:: LTG: Pt. to be independent with large amplitude exercises to complete on own. Goal Time Frame: 4-6 Weeks - Rehabilitation Potential Physical Therapy Diagnosis: Pt. has signs and symptoms consistent with PD with subsequent BLE weakness, difficulty with gait and imbalance. Pt would benefit from PT to work on the above limiations progressing HEP for functional strengthening and endurance as able. Rehabilitation Potential: Excellent - Anticipated Interventions Patient/Client Instruction: Educate patient on: Condition, Plan of Care, Risk Factors, Benefits of Fitness Program For the Purpose of:: To improve decision making, To facilitate caregiver knowledge, To improve self management, To prevent re-injury, To improve ability to perform tasks related to life management, To improve tolerance to ADL's Therapeutic Exercise to Include: Strength training, Power training, Balance training, Body mechanics, Postural training, Flexibilty training, Gait and locomotor training, Passive ROM, Active ROM For the Purpose of:: To decrease pain, To increase ROM, To improve nutrient delivery to tissue, To increase oxygenation perfusion, To improve muscle performance and motor function, To improve ability to perform ADL's, To improve gait and locomotor functions, To improve health of tissue, To increase flexibility/ROM, To improve endurance, To improve balance Thank you for the opportunity to evaluate your patient. For Medicare and Medicare HMO plans, please review the plan of care and approve it. It will need to be FAXED BACK to us at [phone] for Medicare purposes. For Medicare only, by signing this I certify the plan of care. Please let me know if there are questions or concerns regarding this plan of care. Physician Signature: Date:
== END 2020-01-12 19:00 | disposition home or self-care (01) ==
LOC: PT 10:00
PROVIDERS: PCP Internal Medicine; Referring Provider Internal Medicine; Visit Provider Internal Medicine
DX: R13.10 Dysphagia, unspecified (principal); G20 Parkinson's disease; R47.1 Dysarthria and anarthria
CPT/HCPCS: 92507; 92523; 92526; 92610; 97110; 97161

== ENCOUNTER → 2020-02-23 12:27 | Outpatient (CLI) | payer MEDICARE, SELFPAY ==
[2020-01-12 13:01] VITALS: BMI 20.3
--- NOTE | 2020-02-24 09:00 | PFT ---
INTRODUCTION: The patient is a 79-year-old female that presents for pulmonary function studies secondary to a diagnosis of shortness of breath. Respiratory therapy reports good patient effort. Bronchodilators were used during testing. INTERPRETATION: Forced expiration spirometry demonstrates no evidence of a large airways obstructive ventilatory defect. There was, however, stigmata of small airways disease along with a significant bronchodilator response. Spirograms are of good quality and plateau gradually indicating slow emptying of the lungs. Body plethysmography was performed and reveals lung volumes to be within normal limits. Diffusing capacity by single breath CO is also within normal limits. IMPRESSION: Stigmata of small airways disease and significant bronchodilator response. Lung volumes and diffusing capacity are within normal limits.
== END ==
PROVIDERS: PCP Internal Medicine; Referring Provider Nurse Practitioner Acute Care; Visit Provider Nurse Practitioner Acute Care
DX: R06.02 Shortness of breath (principal)
CPT/HCPCS: 94060; 94726; 94729

== ENCOUNTER → 2020-02-26 12:17 | Outpatient (CLI) | payer MEDICARE, SELFPAY ==
[2020-01-12 13:01] VITALS: BMI 20.3
[2020-02-26 12:30] VITALS: PULSE 71; PULSE 80; PULSE 84; PULSE 86; PULSE 87; O2SAT 94; O2SAT 96; O2SAT 98; O2SAT 99
--- NOTE | 2020-02-27 08:15 | PCM.PSN.6M ---
PSN 6 Minute Walk Test - 6 Minute Walk Test 6 Minute Walk Test: 6 Minute Walk Test PSN:6-Minute Walk Test Start: 02/26/20 13:26 Freq: Status: Active Protocol: [id number].6MINW Document 02/26/20 12:30 HJ (Rec: 02/26/20 13:30 [id number]) 6 Minute Walk Test Date Performed 02/26/20 Time Performed 12:30 Height 5 ft 4 in Weight: 115 lb Weight in Pounds 115.[address]: Britney Quinn PSYCHIATRIC AIDE INSTRUCTOR FIO2 (% Oxygen) 21 Assistive device used: None Pre-test Oxygen Delivery Method Room Air Pulse Ox (%) 98 Pulse Rate (60-100 beats/min) 71 Dyspnea Bing Scale (0-10) 0 Exertion Bing Scale (6-20) 6 1st minute Oxygen Delivery Method Room Air Pulse Ox (%) 99 Pulse Rate (60-100 beats/min) 84 2nd minute Oxygen Delivery Method Room Air Pulse Ox (%) 96 Pulse Rate (60-100 beats/min) 84 Number of Rests Taken 1 3rd minute Oxygen Delivery Method Room Air Pulse Ox (%) 94 Pulse Rate (60-100 beats/min) 87 Number of Rests Taken 1 4th minute Oxygen Delivery Method Room Air Pulse Ox (%) 96 Pulse Rate (60-100 beats/min) 87 5th minute Oxygen Delivery Method Room Air Pulse Ox (%) 96 Pulse Rate (60-100 beats/min) 86 6th minute Oxygen Delivery Method Room Air Pulse Ox (%) 96 Pulse Rate (60-100 beats/min) 86 Post-test Oxygen Delivery Method Room Air Pulse Ox (%) 98 Pulse Rate (60-100 beats/min) 80 Dyspnea Bing Scale (0-10) 8 Exertion Bing Scale (6-20) 2 Full Laps Walked 12 Partial Lap, Number of Tiles Walked 12 Total Distance Walked (ft) 720 - Interpretation Interpretation: The patient ambulated 720 feet over the course of 6 minutes beginning on room air without assistive devices or breaks. Pretesting oxygen saturation was noted to be 98% on room air. With ambulation, the esme oxygen saturation was 94%. There was no significant exertional oxygen desaturation. - Recommendations Recommendations: There is no indication for the use of supplemental oxygen at this time.
== END ==
PROVIDERS: PCP Internal Medicine; Referring Provider Nurse Practitioner Acute Care; Visit Provider Nurse Practitioner Acute Care
DX: R06.02 Shortness of breath (principal)
CPT/HCPCS: 94618

== ENCOUNTER → 2020-07-19 13:51 | Outpatient (CLI) | payer MEDICARE, SELFPAY ==
[2020-03-31 14:09] VITALS: BMI 19.4
[2020-07-19 14:12] LABS: Hematocrit 41.4 % (37-47); Hemoglobin 13.7 g/dL (12.0-15.0); Mean Corp Hgb Conc 33.1 g/dL (32-36); Mean Corpuscular Hgb 31.4 pg (27.0-32.0); Mean Corpuscular Volume 94.7 fL (81-99); Mean Platelet Vol. 10.2 fl (6.2-12.0); Platelet Count 253 K/mm3 (150-450); RBC Distribution Width CV 12.3 % (11.6-14.6); RBC Distribution Width SD 43.1 fl (35.1-43.9); Red Blood Count 4.37 M/mm3 (4.2-5.4); White Blood Count 9.8 K/mm3 (4.4-11.0)
[2020-07-19 14:33] LABS: BNP,B-Type NATRIURETIC PEPTIDE 96.4 pg/mL (0-100)
[2020-07-19 14:42] LABS: ALB/GLOB Ratio 1.4 RATIO (0.9-2.4); AST(SGOT) 33 U/L (15-37); Alanine Aminotransfer ALT/SGPT 12 U/L (13-56); Albumin, Serum 3.9 g/dL (3.2-5.0); Alkaline Phosphatase 90 U/L (45-117); Anion Gap 7 (5-15); BUN 33 mg/dL (7-18); BUN/Creat Ratio 32.4 RATIO (10-20); Calcium,Total 9.3 mg/dL (8.5-10.1); Chloride 103 mmol/L (98-107); Creatinine, Serum 1.02 mg/dL (0.55-1.02); EST Glomerular Filtration Rate 55 mL/min (>60); Est Glom Filt Rate - Afr Amer 67 mL/min (>60); Globulin 2.7 g/dL (2.2-4.2); Glucose 86 mg/dL (74-106); Potassium 4.6 mmol/L (3.5-5.1); Protein, Total 6.6 g/dL (6.4-8.2); Sodium Level 141 mmol/L (136-145); T4 Free Direct 1.01 ng/dL (0.76-1.46); Thyroid Stim Hormone (TSH) 1.41 uIU/mL (0.358-3.74)
== END ==
PROVIDERS: PCP Internal Medicine; Visit Provider Internal Medicine
DX: R63.4 Abnormal weight loss (principal); R06.02 Shortness of breath
CPT/HCPCS: 80053; 83880; 84439; 84443; 84484; 85027

== ENCOUNTER → 2020-09-23 12:48 | Outpatient (CLI) | payer MEDICARE, SELFPAY ==
[2020-08-11 05:43] VITALS: BMI 18.8
--- NOTE | 2020-09-23 13:43 | ST.MBS ---
Modified Barium Swallow - Patient Information Study Date: 09/23/20 Study Time: 13:00 Direct Billable Minutes: 120 Total Minutes procedure & reportin Diagnosis: dysphagia, unspecified (R13.10) Referring Physician: Diane Christianson Reason for Referral: To objectively assess swallow function under fluoroscopy and determine presence or aspiration. Medical History: The patient is a 80/F with pmhx including Parkinson disease, dyspnea on exertion, obstructive sleep apnea, shortness of breath, chronic fatigue, post-nasal drip, unspecified chest pain, coronary artery disease, atherosclerotic heart disease of [place] coronary artery without angina pectoris, non-rheumatic mitral valve stenosis, nonrheumatic mitral valve prolapse, paroxysmal atrial tachycardia, essential hypertension, palpitations, premature atrial contractions, asymptomatic premature ventricular contractions, premature ventricular contractions, pure hypercholesterolemia, hyperlipidemia, long-term use of high-risk medication, history of shoulder surgery. Current Diet Ordered: regular textures with meat cut up and thin liquids Dentition: Natural Teeth Mental Status: WNL Respiratory Status: Oxygenating on Room Air - Penetration-Aspiration Scale Penetration-Aspiration Scale: OBJECTIVE ASSESSMENT OF SWALLOW FUNCTION (QUANTITATIVE ? PER TRIAL): PENETRATION / ASPIRATION SCALE (CAPONE): 1 = does not enter airway 2 = enters airway/above vocal folds/ejected 3 = enters airway/above vocal folds/not ejected 4 = enters airway/contacts vocal folds/ejected 5 = enters airway/contacts vocal folds/not ejected 6 = enters airway/below vocal folds/ejected 7 = enters airway/below vocal folds/not ejected despite effort 8 = enters airway/below vocal folds/no effort - Penetration-Aspiration Scale Score Thin Liquid via teaspoon Result: 1= does not enter airway Thin Liquid via teaspoon Trial 2 Result: 1= does not enter airway Thin Liquid via large single sip from cup Result: 1= does not enter airway Thin Liquid via sequential sips from cup Result: 1= does not enter airway [place] Thick Liquid via large single sip from cup Result: 1= does not enter airway Honey Thick Liquid via large single sip from cup Result: 1= does not enter airway Pudding Result: 1= does not enter airway Cookie Result: 1= does not enter airway Thin Liquid via single sip from straw Result: 1= does not enter airway Thin Liquid via sequential sips from straw Result: 2= enter airway/above vocal folds/ejected - Oral Phase Labial Seal: Escape beyond interlabial space; no extension beyond sugey border Tongue Control During Bolus Hold: Posterior escape of less than half of bolus Bolus Preparation/Mastication: Slow prolonged chewing/mashing with complete recollection Bolus Transport/Lingual Motion: Slowed tongue motion Oral Residue: Residue collection on oral structures - Pharyngeal Phase Initiation of Pharyngeal Swallow: Bolus head in valleculae Soft Palate Elevation: No bolus between soft palate and pharyngeal wall Laryngeal Elevation: Comp. Superior move thyroid cart w/comp. apprx arytenoid cart-epig pet Anterior Hyoid Excursion: Partial anterior movement Epiglottic Movement: Complete inversion Laryngeal Vestibule Closure at Height of Swallow: Incomplete; narrow column of air/contrast in laryngeal vestibule Pharyngeal Stripping Wave: Present - diminished Pharyngoesophageal Segment Opening: Parital distension and partial duration; parital obstruction of flow Tongue Base Retraction: Wide column of contrast between tongue base & post. pharyngeal wall Pharyngeal Residue: Collection of residue within or on pharyngeal structures - Esophageal Phase Esophageal Clearance: Esophageal retention w/ retrograde flow below pharyngoesophageal seg. - Diagnosis/Impression Diagnosis: mild oropharyngeal dysphagia (R13.12) Impression: Oral phase primarily characterized by lengthy mastication of solid Ann Doone cookie with moderate oral residue. Pt cued to take 2nd swallow with effective oral clearance. Pharyngeal phase primarily marked by adequate laryngeal elevation but decreased hyoid excursion. Pt with mild-moderate pharyngeal residue with cues to take second swallow. Using a double swallow was effective at clearing residue. No aspiration found at this time. Patient had penetration of thin liquids above the vocal cords with ejection when taking sequential sips via straw. Esophageal phase marked my retention and reflux below the PES. Would consider further esophageal workup from respiratory therapist assistant to determine the patients esophageal functioning. - Recommendations Diet: Regular Textures, Thin Liquids Comment: consider cutting up meat into smaller, easier to chew pieces and adding sauce/gravy Compensatory Strategies: Small Bites, Small Sips, Multiple Swallows - double swallow for every bite and sip, Sitting upright Supervision: Distant Supervision Recommend Repeat Modified Barium Swallow: TBD Need for Skilled Speech Therapy Services: Yes - continue with OP ST as ordered Recommended Referrals: GI Consult - Status Active ST Patient: Active - Contact Information [facility] Speech [facility]:: Brittney Santos MA, CCC-EASTERN PHILOSOPHY PROFESSOR Speech-Language Pathologist [address] [address] [email or web address] [phone]
== END ==
PROVIDERS: PCP Internal Medicine; Referring Provider Internal Medicine; Visit Provider Internal Medicine
DX: R13.10 Dysphagia, unspecified (principal)
CPT/HCPCS: 74230; 92611

== ENCOUNTER 2020-09-28 14:00 | Outpatient (RCR) | payer MEDICARE, SELFPAY ==
[2020-03-31 14:09] VITALS: BMI 19.4
--- NOTE | 2020-08-03 16:04 | HP.SP.AD_ITS ---
History - History Date of Eval: 08/03/20 Medical Diagnosis (from RX): Dysphagia Previous speech therapy: Yes Results: Patient was treated for dysphagia in fall 2019 with only a few sessions due to increase in Covid-19 as well as Home Health (unknown results) Other Relevant Medical History/Diagnoses/Surgery: Parkinson disease, dyspnea on exertion, obstructive sleep apnea, shortness of breath, chronic fatigue, post-nasal drip, unspecified chest pain, coronary artery disease, atherosclerotic heart disease of [place] coronary artery without angina pectoris, non-rheumatic mitral valve stenosis, nonrheumatic mitral valve prolapse, paroxysmal atrial tachycardia, essential hypertension, palpitations, premature atrial contractions, asymptomatic premature ventricular contractions, premature ventricular contractions, pure hypercholesterolemia, hyperlipidemia, long-term use of high-risk medication, history of shoulder surgery. Medications related to this diagnosis: Patient was unable to recall. Smoking Status: Never smoker Hx Tobacco Use: No - Pain Is pain an issue with your current prescribed condition?: No - Personal Occupation: Retired Right Hearing Abillity: Normal Left Hearing Abillity: Normal Visual Assistive Devices: Glasses Patients Living Arrangements: a girl who helps me Patient Allergies - Allergies Allergies simvastatin Allergy (Verified 03/31/20 14:10) Unknown Sulfa (Sulfonamide Antibiotics) Allergy (Verified 03/31/20 14:10) Unknown Objective Oral Motor - Oral Status Dentition: WNL - Labial Impairment: WNL Closure: WNL Pucker: WNL Retraction: WNL Alternating Pucker/Retraction: WNL Involuntary Movement noted: No - Lingual Impairment: WNL Protrusion: WNL Retraction: WNL Lateralization: WNL Involuntary Movement: No - Jaw Impairment: WNL Involuntary Movement: No - Respiratory Status Respiratory Status: Room Air Subjective Dysphagia - Symptoms Reported Symptoms/Problems with: Weight Loss - Current Diet Solids Current Diet: Regular - Current Diet Liquids Current Liquids: Thin Objective Dysphagia - Administered by Administered by: Self - Thin Liquids Administred via: Cup Laryngeal Elevation: WFL Oral Holding: No Comments: Noted natural double swallow. - Pureed Laryngeal Elevation: WFL Oral Holding: No Patient Report: No difficulties - Regular Laryngeal Elevation: WFL Patient Report: She reported that she sometimes Comments: Slower mastication but still appropriate. - Results Swallowing Within Normal Limits: Yes Subjective Cog/Ling/Com - Subjective Cognitive/Linguistic/Communication: Patient reported that she has difficulty remembering things. Further evaluation of cognitive linguistic skills necessary. Subjective Voice - Medications Mediations: Patient was unable to recall medications. She reported parkinson's medication three times a day. - Intubation Was the Client intubated: No Objective Voice - Date of Diagnosis Date of diagnosis: 4-5 years ago - Medications Familiar with on/off effect: No - Patient reported feeling this but didn't appear to understand it. - Implantation Deep brain implantation (If yes, answer next question): No - Objective data Objective Data: Objective data: Sound pressure level (SPL acoustic correlation of vocal loudness) was measured with a sound level meter at a distance of 40 cm from the patient's mouth. Average conversational loudness is 70-80 dB and sustained phonation duration is 15 to 20 seconds for a typical adult. Sustained Phonation Intensity (dB SPL): 73 Sustained Phonatin duration (seconds): 12 Is the individual stimulable to increase vocal intensity: Yes - Mildly Vocal Intensity at Conversational Level (dB SPL): 65 Plan - Plan Plan: The patient would benefit from skilled speech-language intervention targeting training / implementation of recommended expressive communication strategies targeting hypokinetic dysarthria / hypophonia (increased vocal intensity) with a modified Peter Cantu Voice Therapy approach. - Recommendations MBS: No Treatment Warranted: Yes - Frequency Frequency: 1x/Week Duration: 2 Months Visits in this POC: 8 - Prognosis Prognosis: Good - Goals that are Established: Determination:: Goals will be added/modified as deemed necessary and appropriate. Therapy will be discontinued when results of re-evaluation indicate therapy is no longer needed or lack of progress has been documented. - Goal #1-5 Goal #1: the patient will independently demonstrate and utilize recommended compensatory articulation techniques (increased vocal intensity, reduced rate of speech, over articulation) to facilitate increased expressive communication abilities in the home and social environments. Goal #2: Cognitive Communication evaluation with goals added as necessary and appropriate. Education - Patient has Indicated that the Following Identified Educational Needs: Cognitively Impaired - Patient Instruction Patient Education: Diagnosis, Treatment Plan, Goals Person Taught: Patient Teaching Method: Discussion Response to teaching: Reinforcement needed
--- NOTE | 2020-11-30 15:35 | HP.SP.DC ---
ST Discharge Summary - Discharged: Discharge: Radha Elkins is discharge from [facility] speech therapy as of 09/28/20 as she is functional in her daily living. Her swallowing is WFL and MBS was explained along with results today. MBS recommended thin liquids with regular diet. Patient lives with a friend. She is able to schedule her appointments as well as keep them. She also schedules her transportation. She is functional in her tasks of her daily living. Cognitive testing revealed difficult with mazes, and symbol cancellation subtest of CLQT. She had appropriate scores for her age cut criterion for person facts, confrontational naming, story retelling, generative naming and design generations. It placed her executive function skills in the mild range and her language skills WNL. The patient had no concerns. Please see notes for details. Thank you for allowing me to participate in the care of this patient.
== END 2020-09-28 19:00 | disposition home or self-care (01) ==
LOC: SP 14:00
PROVIDERS: PCP Internal Medicine; Referring Provider Internal Medicine; Visit Provider Internal Medicine
DX: R13.10 Dysphagia, unspecified (principal); R47.1 Dysarthria and anarthria
CPT/HCPCS: 92507; 92526; 92610

== ENCOUNTER → 2020-09-30 13:50 | Outpatient (CLI) | payer MEDICARE, SELFPAY ==
--- NOTE | 2020-09-30 14:00 | RAD_ITS ---
STUDY: X-RAY CHEST REASON FOR EXAM: Female, 80 years old. Dyspnea TECHNIQUE: PA and lateral chest radiographs COMPARISON: 11/15/2016 FINDINGS: The lungs are clear and expanded. There is no demonstrated pleural abnormality. Normal size heart. Normal mediastinum and osito. Normal visualized pulmonary arteries. Normal visualized aortic arch and descending thoracic aorta. Normal visualized thoracic spine. Normal visualized ribs, clavicles, and shoulders. There is no demonstrated abnormality of the visualized soft tissue structures of the upper abdomen. RAD/Chest PA and Lateral IMPRESSION: No acute abnormal cardiopulmonary finding. Electronically Signed: Apollo Louis MD at 7:22 EDT Tel , Service support ,
[2020-09-30 15:19] LABS: Absolute Lymphocyte Count 0.72 X10^3/uL (0.83-4.51); Absolute Neutrophil Count 7.1 X10^3/uL (2.0-7.7); Basophil# 0.02 X10^3/uL; Basophil% 0.2 % (0-1); Eosinophil# 0.04 X10^3/uL; Eosinophils% 0.5 % (0-5); Hematocrit 41.2 % (37-47); Hemoglobin 13.4 g/dL (12.0-15.0); Lymphocyte # 0.72 X10^3/ul (0.83-4.51); Lymphocyte % 8.5 % (19-41); Mean Corp Hgb Conc 32.5 g/dL (32-36); Mean Corpuscular Hgb 31.3 pg (27.0-32.0); Mean Corpuscular Volume 96.3 fL (81-99); Mean Platelet Vol. 10.3 fl (6.2-12.0); Monocyte# 0.55 X10^3/uL; Monocyte% 6.5 % (0-10); NRBC Flagged by Analyzer 0 % (0-5); Neutrophil # 7.07 X10^3/uL (2.7-7.7); Neutrophil % 83.9 % (47-70); Platelet Count 262 K/mm3 (150-450); RBC Distribution Width CV 12.3 % (11.6-14.6); RBC Distribution Width SD 43.1 fl (35.1-43.9); Red Blood Count 4.28 M/mm3 (4.2-5.4); White Blood Count 8.4 K/mm3 (4.4-11.0)
[2020-09-30 15:48] LABS: BNP,B-Type NATRIURETIC PEPTIDE 86.8 pg/mL (0-100)
[2020-09-30 15:49] LABS: Anion Gap 3 (5-15); BUN 38 mg/dL (7-18); BUN/Creat Ratio 35.5 RATIO (10-20); Calcium,Total 9.1 mg/dL (8.5-10.1); Chloride 106 mmol/L (98-107); Creatinine, Serum 1.07 mg/dL (0.55-1.02); EST Glomerular Filtration Rate 52 mL/min (>60); Est Glom Filt Rate - Afr Amer 63 mL/min (>60); Glucose 131 mg/dL (74-106); Sodium Level 140 mmol/L (136-145)
== END ==
PROVIDERS: PCP Internal Medicine; Referring Provider Nurse Practitioner Gerontology; Visit Provider Nurse Practitioner Gerontology
DX: R06.09 Other forms of dyspnea (principal); R06.02 Shortness of breath
CPT/HCPCS: 36415; 71046; 80048; 83880; 85025

== ENCOUNTER → 2020-10-21 06:14 | Outpatient (CLI) | payer MEDICARE, SELFPAY ==
--- NOTE | 2020-10-21 06:21 | ECHOD_ITS ---
Reason For Study: DYSPNEA/SOB Procedure This was a 2D Doppler, Color Flow transthoracic echocardiogram. Exam performed in department. Left Ventricle Normal LV size. Left ventricular systolic function is normal. The estimated ejection fraction is 60 %. Diastolic function is indeterminate. No regional wall motion abnormalities noted. Right Ventricle Normal RV size. Normal systolic function. Atria Normal left atrium. Normal right atrium. No doppler evidence for ASD. Mitral Valve There is no mitral annular calcification. Mild diffuse mitral valve thickening. Mild mitral valve prolapse, posterior leaflet. Trivial mitral valve insufficiency. Tricuspid Valve Normal tricuspid valve. Mild tricuspid valve insufficiency. Right ventricular systolic pressure estimated to be 34 mmHg. Aortic Valve Trisinus/trileaflet aortic valve. Normal aortic valve. Pulmonic Valve The pulmonic valve is not well visualized. Great Vessels Normal sized aortic root. Pericardium/Pleural No pericardial effusion. MMode/2D Measurements & Calculations LVIDd: 4.1 cm IVSd: 0.71 cm Ao root diam: 2.9 cm LVIDs: 2.8 cm LVPWd: 0.74 cm RVDd: 2.8 cm FS: 31.7 % LAV(MOD-bp): 43.3 ml LVAd ap4: 19.7 cm2 SV(MOD-sp4): 30.5 ml LAV(MOD-bp) Indexed: 28.6 ml/m2 LVLd ap4: 6.4 cm LAV(MOD-sp2): 54.4 ml EDV(MOD-sp4): 50.7 ml LAV(MOD-sp4): 31.1 ml EDV(sp4-el): 51.7 ml LVAs ap4: 11.6 cm2 LVLs ap4: 5.5 cm ESV(MOD-sp4): 20.1 ml ESV(sp4-el): 20.6 ml EF(MOD-sp4): 60.2 % EF(sp4-el): 60.1 % SV(sp4-el): 31.1 ml LA A4 area: 13.9 cm2 LA dimension(2D): 2.9 cm RA A4 area: 14.2 cm2 Time Measurements MV dec time: 0.22 sec Doppler Measurements & Calculations MV E max arya: 61.6 cm/sec Lat Peak E' Arya: 8.3 cm/sec Med Peak E' Arya: 7.4 cm/sec MV A max arya: 74.1 cm/sec E/E' lat: 7.4 E/E' med: 8.4 MV E/A: 0.83 Ao V2 max: 111.0 cm/sec LV V1 max: 89.1 cm/sec PA V2 max: 67.3 cm/sec Ao max P.9 mmHg LV V1 max P.2 mmHg TR max arya: 278.7 cm/sec TR max P.1 mmHg ECHO/Echo Complete Interpretation Summary Left ventricular systolic function is normal. The estimated ejection fraction is 60 %. Mild diffuse mitral valve thickening. Mild mitral valve prolapse, posterior leaflet Trivial mitral valve insufficiency. Mild tricuspid valve insufficiency. Right ventricular systolic pressure estimated to be 34 mmHg. Diastolic function is indeterminate. Ordering Physician: Keren Johnson Referring Physician: Diane Christianson Performed By: Germania Fisher RDCS, RVT
--- NOTE | 2020-10-21 17:43 | STRESSREP_ITS ---
Stress Test Report Date: 10-21-2020 Procedure: Pharmacologic stress nuclear imaging study Indications: Shortness of breath/dyspnea on exertion Consent: Per the patient Procedure: The patient underwent pharmacologic (Regadenoson 0.4mg ) evaluation with a peak heart rate of 86 beats per minute (61%predicted maximal heart rate) and a peak blood pressure of 120/70 mmHg. The baseline ECG demonstrated sinus rhythm. The peak pharmacologic ECG demonstrated no acute ECG changes. There were no cardiac dysrhythmias pretest, during pharmacologic infusion, or re covery. There was no complaint of chest discomfort during pharmacologic infusion or recovery. The examination was discontinued secondary to completion of protocol. Impression: 1. Pharmacologic (Regadenoson) evaluation 2. Peak pharmacologic ECG with no acute ECG changes. 3. There were no cardiac dysrhythmias pretest, during pharmacologic infusion, or recovery. 4. Nuclear images pending Myocardial perfusion imaging study: Technique: The patient was injected with 11.2 millicuries of technetium 99m Cardiolite and subsequently rest SPECT Cardiolite nuclear imaging was obtained in the hor izontal long, vertical long, and short axis views. The patient underwent pharmacologic (Regadenoson) evaluation with a peak heart rate of 86 beats per minute (61% percent predicted maximal heart rate) and a peak blood pressure of 120/70 mmHg. The patient was injected with 31.3 millicuries of technetium 99m Cardiolite and subsequently stress SPECT Cardiolite nuclear imaging was obtained in the horizontal long, vertical long, and short axis views. A gated Cardiolite study at peak stress was obtained. Interpretation: Rest and stress SPECT Cardiolite nuclear imaging status post realignment, nor malization, and attenuation correction demonstrate relative uniform tracer uptake and myocardial perfusion appearing within normal limits. There is end systolic thickening and brightening. The gated Cardiolite study demonstrates myocardial thickening and inward wall motion. The reported LVEF is 83%. Impression: 1. Rest and stress SPECT Cardiolite nuclear imaging demonstrate relative uniform tracer uptake and myocardial perfusion appearing within normal limits. 2. The gated Cardiolite study reports an LVEF of 83%. This note was generated with [employer] software. It may contain incorrect words, spelling, and punctuation that were not noted in checking the note before signing.
== END ==
PROVIDERS: PCP Internal Medicine; Referring Provider Nurse Practitioner Gerontology; Visit Provider Nurse Practitioner Gerontology
DX: R06.02 Shortness of breath (principal); I25.10 Atherosclerotic heart disease of native coronary artery without angina pectoris; R06.09 Other forms of dyspnea
CPT/HCPCS: 78452; 93017; 93306; A9500; A4216; J2785

== ENCOUNTER → 2021-02-08 07:45 | Outpatient (CLI) | payer MEDICARE, SELFPAY ==
--- NOTE | 2021-02-08 07:59 | US_ITS ---
INDICATION: LFT SIDED ABD PAIN EXAMINATION: Ultrasound US Abdomen Complete TECHNIQUE: Ford-scale and color Doppler imaging was performed of the abdomen. COMPARISON: None. FINDINGS: LIVER: There is normal echotexture. No focal hepatic lesion. No intrahepatic biliary ductal dilatation. There is no free fluid. GALLBLADDER AND BILIARY TREE: No shadowing gallstone, pericholecystic fluid or gallbladder wall thickening is demonstrated. The gallbladder wall measures 2 mm. The proximal common bile duct measures 6mm, which is within normal limits for the patient''s age. SONOGRAPHIC YOUNG''S SIGN: Negative. PANCREAS: No focal abnormality is demonstrated in the pancreas. No pancreatic ductal dilatation. SPLEEN: The spleen is normal in size, scattered hyperechoic foci visualized within the spleen suggestive of for chronic granulomatous disease.. KIDNEYS: There is no hydronephrosis. No shadowing calculus, focal lesion, or perinephric collection is demonstrated. The right kidney measures 9.5 x 4.4 x 4.0 cm. Right renal cortex unremarkable measuring 1.0 cm. The left kidney measures 9.5 x 4.2 x 4.3 cm. Right renal cortex unremarkable measuring 1.2 cm. VESSELS: Submitted longitudinal images of the intra-abdominal aorta demonstrate no gross abnormalities and are unremarkable. The IVC is patent. The abdominal aorta demonstrates mild atherosclerotic disease but no evidence of aneurysmal dilatation or arterial dissection is seen. The abdominal aorta measures 2.2 x 2.0 cm proximally, 2.1 x 1.7 cm in its mid segment and 1.8 x 1.4 cm in its distal segment. US/Abdomen Complete IMPRESSION: No acute sonographic abnormality is demonstrated in the abdomen. Electronically Signed: Kanu Valderrama MD at 14:42 EST Tel , Service support ,
--- NOTE | 2021-02-08 07:59 | US_ITS ---
INDICATION: ABD PAIN EXAMINATION: Ultrasound US Pelvis Non-OB Limited (eg bladder) TECHNIQUE: Transabdominal pelvic ultrasound was performed. Grayscale, spectral waveform, and color flow Doppler evaluation of the adnexa. COMPARISON: None.. FINDINGS: Limited evaluation due to patient''s bowel gas pattern and the shadowing. Suboptimal visualization of the uterus or evaluation. The ovaries were also suboptimally the visualized for evaluation. Patient refused transvaginal evaluation. No evidence of free fluid is seen. Limited evaluation of the urinary bladder is unremarkable. US/Pelvic (Non ) IMPRESSION: Suboptimal pelvic evaluation. Electronically Signed: Kanu Valderrama MD at 16:49 EST Tel , Service support ,
== END ==
PROVIDERS: PCP Internal Medicine; Referring Provider Internal Medicine; Visit Provider Internal Medicine
DX: R06.02 Shortness of breath (principal); R10.9 Unspecified abdominal pain
CPT/HCPCS: 76700; 76856

== ENCOUNTER 2021-05-05 13:48 | Outpatient (CLI) | payer MEDICARE, SELFPAY ==
--- NOTE | 2021-05-05 13:53 | CT_ITS ---
STUDY: CT ABDOMEN AND PELVIS WITH CONTRAST REASON FOR EXAM: Female, 81 years old. L ABDOMINAL PAIN RADIATION DOSAGE (If Supplied By Facility): CTDIvol = ( 12.49 ) mGy, DLP = ( 411.47 ) mGycm TECHNIQUE: Transaxial images were obtained from the dome of the diaphragm to the symphysis pubis with oral contrast. Oral and IV Readi-CAT and 100mL Isovue-300 was administered. Sagittal and coronal images were reconstructed. Individualized dose optimization techniques were used for this CT. COMPARISON: Comparison is made with prior ultrasound of the right upper quadrant dated 02/08/2021. FINDINGS: The visualized lung bases are unremarkable. The visualized portions of the heart are within normal limits. Mildly dilated central intrahepatic biliary ducts. Normal gallbladder and extrahepatic biliary system. Normal spleen. Normal pancreas. Normal bilateral adrenal glands. Normal right kidney. Normal left kidney. Normal visualized stomach. Normal small intestine. Moderate amount of fecal material is seen in the colon. The appendix is visualized and appears normal. Normal abdominal aorta. Normal inferior vena cava. Normal retroperitoneum. Normal urinary bladder. Normal abdominal wall. There are degenerative changes of the visualized lumbar spine. CT/Abdomen/Pelvis WITH Contrast IMPRESSION: Mild degree of dilated intrahepatic biliary ducts. Moderate amount of fecal material is seen in the colon. Electronically Signed: Charles Burgos MD at 15:20 EDT ,
[2021-05-05 14:16] LABS: CREATININE FINGERSTICK < 0.6 mg/dL (0.55-1.02); EGFR FINGERSTICK > 60.0000 mL/min (>60)
== END 2021-05-05 23:59 | disposition home or self-care (01) ==
LOC: CT 13:51
PROVIDERS: PCP Internal Medicine; Referring Provider Internal Medicine; Visit Provider Internal Medicine
DX: R10.9 Unspecified abdominal pain (principal)
CPT/HCPCS: 74177; Q9967

== ENCOUNTER 2021-09-29 13:20 | Inpatient (IN) | payer MEDICARE, SELFPAY ==
[2021-09-29] VITALS (8 sets, daily range): BP systolic 110–161; BP diastolic 70–99; PULSE 72–88; RESP 15–18; TEMP 35.7–36.8; O2SAT 95–98; BMI 18.5; BMI 18.7
--- NOTE | 2021-09-29 13:49 | EKG12_ITS ---
Test Reason : WEAKNESS Blood Pressure : / mmHG Vent. Rate : 073 BPM Atrial Rate : 073 BPM P-R Int : 144 ms QRS Dur : 070 ms QT Int : 372 ms P-R-T Axes : 052 020 056 degrees QTc Int : 409 ms Sinus rhythm with Premature atrial complexes Possible Left atrial enlargement Low voltage QRS (Limb Leads) Confirmed by ABI FRANCOIS, SKY ([id number]), index editor MATT THOMAS ([id number]) on 09/30/2021 9:45:17 AM Referred By: FINA Confirmed By:SKY ALEX MD
--- NOTE | 2021-09-29 13:50 | CT_ITS ---
STUDY: CT ABDOMEN AND PELVIS WITH CONTRAST REASON FOR EXAM: Female, 81 years old. LLQ abd pain. Cough and generalized weakness. RADIATION DOSAGE (If Supplied By Facility): CTDIvol = ( 9.73 ) mGy, DLP = ( 285.06 ) mGycm TECHNIQUE: Transaxial images were obtained from the dome of the diaphragm to the symphysis pubis without oral contrast. IV 75mL Isovue-300 was administered. Sagittal and coronal images were reconstructed. Individualized dose optimization techniques were used for this CT. COMPARISON: Comparison is made with prior study dated 05/05/2021. FINDINGS: Minimal degree of increased markings at the lung bases suggestive of atelectasis. The visualized portions of the heart are within normal limits. There is decreased attenuation of the liver consistent with steatosis. Mild degree of the central intrahepatic biliary ductal dilatation. This is unchanged. The gallbladder is contracted. Normal spleen. Normal pancreas. Normal bilateral adrenal glands. Normal right kidney. Normal left kidney. Normal visualized stomach. Normal small intestine. Moderate amount of fecal material is seen in the colon. Scattered sigmoid diverticula. The appendix is visualized and appears normal. There is scattered atherosclerotic calcification of the abdominal aorta, without a demonstrated aneurysm. Normal inferior vena cava. Normal retroperitoneum. Normal urinary bladder. Normal abdominal wall. Disc space narrowing and degeneration at the L5-S1 level. CT/Abdomen/Pelvis W IV Cont ONLY IMPRESSION: Stable mild degree of central intrahepatic biliary ductal dilatation. Contracted gallbladder. Electronically Signed: Charles Burgos MD at 15:23 EDT ,
--- NOTE | 2021-09-29 13:51 | EDS_ITS ---
HPI History of Present Illness Chief Complaint: Weakness Informant: patient and family Onset/Context/Timing Onset: Weeks Context: Gradual Onset Timing: Continuous Current Severity: Mild Maximum Severity: Mild Narrative Narrative: 81-year-old female history of CAD and Parkinson's disease. Also dementia. Patient lives at home with her son other person and lives in the basement. Minimally per the son patient has had decreased oral intake and has been generally weak over the last several days. Has had a 12 pound weight loss in the last several weeks. Denies any nausea vomiting or diarrhea. No dysuria. No fever. She has had a bowel movement last several days. No falls or trauma. She is also had some left lower quadrant abdominal pain. Prior similar symptoms: No Recent Illness/Hospitalization: No PFSH PFS Medical History (Updated 09/29/21 @ 15:[address] Schuyler Lott MD) Abnormal findings on diagnostic imaging of heart and coronary circulation Asymptomatic premature ventricular contractions Atherosclerotic heart disease of [place] coronary artery without angina pectoris Chest pain, unspecified Coronary artery disease Dyspnea on exertion Essential hypertension Family history of heart disease Fatigue Hyperlipidemia Hypertension Long-term use of high-risk medication Non-rheumatic mitral valve stenosis Nonrheumatic mitral valve prolapse Nonrheumatic mitral valve stenosis with insufficiency MAGED (obstructive sleep apnea) Palpitations Parkinson disease Paroxysmal atrial tachycardia PND (post-nasal drip) Premature atrial contractions Premature ventricular contractions Pure hypercholesterolemia Shortness of breath Home Medications aspirin 81 mg chewable tablet 81 mg PO DAILY@0800 03/31/13 [History Last Taken Unknown] rotigotine 2 mg/24 hour transdermal 24 hour patch 6 mg TRANSDERM. DAILY 10/24/15 [History Last Taken Unknown] red yeast rice 600 mg capsule 600 mg PO DAILY 07/13/16 [History Last Taken Unknown] albuterol sulfate 90 mcg/actuation aerosol inhaler (ProAir HFA) 2 puff inhalation Q6H PRN SOB 04/18/18 [History Last Taken Unknown] lisinopril 5 mg tablet 5 mg PO DAILY 90 days #90 tabs 04/18/18 [History Last Taken Unknown] PEP device #1 ea 07/15/18 [Rx Last Taken Unknown] calcium carbonate 500 mg calcium (1,250 mg) tablet (Calcium 500) 1,000 mg PO DAILY 07/30/19 [History Last Taken Unknown] metoprolol tartrate 25 mg tablet 25 mg PO .COMPLEX 07/30/19 [History Last Taken Unknown] sertraline 100 mg tablet 100 mg PO DAILY 07/30/19 [History Last Taken Unknown] carbidopa 25 mg-levodopa 100 mg tablet (Sinemet) 1 tab PO Q6H 03/31/20 [History Last Taken Unknown] clonazepam 0.5 mg tablet 0.5 mg PO BID 08/11/20 [History Last Taken Unknown] albuterol sulfate 2.5 mg/3 mL (0.083 %) solution for nebulization 2.5 mg (3 mL) inhalation Q4H PRN Sob &/Or Wheezing #180 mL 11/10/20 [Rx Last Taken Unknown] budesonide 1 mg/2 mL suspension for nebulization 1 mg (2 mL) inhalation BID #60 mL 11/10/20 [Rx Last Taken Unknown] mirtazapine 30 mg tablet 30 mg PO DAILY 05/03/21 [History Last Taken Unknown] Allergy/AdvReac Type Severity Reaction Status Date / Time simvastatin Allergy Unknown Verified 09/29/21 13:21 Sulfa (Sulfonamide Allergy Unknown Verified 09/29/21 13:21 Antibiotics) Family History Father CAD (coronary artery disease) Myocardial infarction Surgical History History of shoulder surgery Social History Smoking Status: Never smoker second hand exposure: No alcohol intake: never substance use type: does not use caffeine: No what type of physical activity do you participate in: walking frequency: 1-2 times per week duration: 30-45 minutes/day seatbelt use: always do you feel safe at home: Yes ROS ROS ED ROS Narrative Denies recent illness. Has had some intermittent lower abdominal pain. Review of Systems ROS Unobtainable: Denies due to encephalopathy Constitutional Constitutional ED: Denies chills Eyes Eyes: Denies blurry vision ENT ENT ED: Denies ear pain Cardiovascular Cardiovascular: Denies chest pain Respiratory/Chest Respiratory/Chest: Denies cough Gastrointestinal Gastrointestinal: Reports abdominal pain; Denies constipation, diarrhea, melena, nausea or vomiting Genitourinary Genitourinary ED: Denies dysuria or hematuria Musculoskeletal Musculoskeletal: Denies arthralgias Integumentary Denies abscess Neurologic Neurologic: Denies headache(s) Psychiatric Psychiatric: Denies anxiety Endocrine Endocrinology: Denies cold intolerance Hematologic/Lymphatic Hematologic/Lymphatic: Reports none Allergic/Immunologic Allergic/Immunologic ED: Denies mouth swelling or tongue swelling EXAM Physical Exam Narrative Exam Narrative: 81-year-old female no acute distress. Vital signs stable afebrile. H EENT exam unremarkable Thin resilient members. Neck nontender. No lymphadenopathy. Lungs clear to auscultation bilaterally. Heart regular rhythm rate about 90 no murmur. Chest wall nontender. Abdomen soft nontender. Normal bowel sounds no peritoneal signs. No distention. No hernia or mass appreciated. Moving all 4 extremities. Normal residence leasing agent strength. Normal dorsi plantar flexion. No edema. Back nontender. Neurologically she is awake and alert answering questions and following commands. Patient does appear to be thin. Const Vital Signs: 09/29/21 13:21 09/29/21 14:35 09/29/21 13:24 Temperature 96.3 F L 96.3 F L Temperature Source Temporal Temporal Pulse Rate 88 88 Respiratory Rate 15 15 Respiratory Effort Normal Non-Labored Respiratory Pattern Normal Blood Pressure 110/99 H 110/99 H Blood Pressure Mean 102 102 Pulse Ox 97 97 Oxygen Delivery Method Room Air Room Air Positive well nourished and well developed; Negative for obese, cachectic, contractures or unkempt General Appearance ED: well developed and NAD; Negative for unkempt, cachectic, contractures, cyanotic or diaphoretic Nutritional Appearance: Negative for cachectic or obese HEENT Reports moist mucous membranes; Denies dry mucous membranes Negative for trauma or tenderness Mouth ED: No dry mucous membranes Mouth: No dry mucous membranes Eyes PERRL and EOMs intact bilaterally General Eye ED: Negative for pale conjunctiva or scleral icterus Neck no lymphadenopathy, supple and no JVD General: Negative for tenderness Lymph Lymphatic: Negative for other Chest Wall inspection of chest normal and palpation of chest normal Chest: Negative for other Resp normal respiratory effort and clear to auscultation bilaterally Effort and Inspection: Negative for retractions Auscultation: Negative for rales Cardio regular rate, regular rhythm, S1 normal heart sound, S2 normal heart sound and no murmurs GI normal to inspection, nondistended, normoactive bowel sounds, non-tender, non- distended and no masses Auscultation: normoactive bowel sounds Palpation: soft; Negative for tender, guarding or mass Back/Spine no CVA tenderness General Back: Negative for CVA tenderness Cervical Spine: Negative for cervical spine tenderness Thoracic Spine / Upper Back: Negative for thoracic spinal tenderness Lumbar Spine / Lower Back: Negative for lumbar spinal tenderness Extremity normal to inspection General Extremety ED: Negative for edema or tenderness General Extremity: Negative for edema Neuro Sensorium / Orientation: alert; Negative for lethargic or stuporous Motor Exam: strength 5/5 throughout Psych mental status grossly normal Appearance: Negative for unkempt Attitude: No agitated Mood & Affect: Negative for depressed or anxious Skin no rashes or lesions noted and no wounds Rashes: No rashes noted Trauma: Negative for abrasion Wounds: Negative for wounds noted MDM MDM MDM Narrative Medical decision making narrative: 81-year-old female with failure to thrive at home. Most likely she will need to be admitted and possible placement. She has had a weight loss and decreased intake. She will be treated with IV fluids. Screening labs. CAT scan of her abdomen due to some intermittent left lower quadrant abdominal pain. Currently her exam is benign. Repeat exam unchanged. Hospitalist on page for admission. Patient was treated with a liter normal saline here. Discussed test results with the patient and her son. Lab Data Attestation: I reviewed the patient's lab results. Lab results narrative: CBC unremarkable white count of 6. H&H 12 and 34. Electrolytes show a gap of 2 BUN and creatinine of 50 and 1.25 consistent with dehydration. Liver enzymes unremarkable. Glucose 143. Labs: Laboratory Results - last 24 hr 09/29/21 09/29/21 14:13 14:13 WBC 6.0 RBC 3.67 L Hgb 12.0 Hct 34.2 L MCV 93.2 MCH 32.7 H MCHC 35.1 RDW Std Deviation 41.5 RDW Coeff of Ton 11.9 Plt Count 217 MPV 10.1 Immature Gran % (Auto) 0.300 Neut % (Auto) 80.6 H Lymph % (Auto) 9.4 L [place] % (Auto) 8.6 Eos % (Auto) 0.8 Baso % (Auto) 0.3 Absolute Neuts (auto) 4.8 Absolute Lymphs (auto) 0.56 L Nucleated RBC % 0 Differential Comment COMMENT Sodium 142 Potassium 4.5 Chloride 107 Carbon Dioxide 33.0 H Anion Gap 2 L BUN 50 H Creatinine 1.25 H Estim Creat Clear Calc 26.41 Est GFR (MDRD) Af Amer 53 L Est GFR (MDRD) Non-Af 44 L BUN/Creatinine Ratio 40.0 H Glucose 143 H Calcium 9.1 Total Bilirubin 0.50 AST 28 ALT 10 L Alkaline Phosphatase 75 Total Protein 6.1 L Albumin 3.3 Globulin 2.8 Albumin/Globulin Ratio 1.2 Radiography Chest X-Ray - ED: 1 View, Read by ED Physician, Read by Radiologist, Heart, Lungs, Mediastinum, Bony Structures, No Acute Disease and Chronic Changes Diagnostic Testing: Clinical Impression(s) from Imaging Studies Abdomen/Pelvis CT 09/29/21 13:50 IMPRESSION: Stable mild degree of central intrahepatic biliary ductal dilatation. Contracted gallbladder. Electronically Signed: Charles Burgos MD at 15:23 EDT , Chest X-Ray 09/29/21 14:32 IMPRESSION: Hyperinflation. The lungs are clear. Electronically Signed: Charles Burgos MD at 14:52 EDT , Chest x-ray, portable, single view interpreted by myself and the radiologist shows no acute abnormality. Normal cardiac silhouette. Normal mediastinum. Normal lung bergeron. Rhythm Strip Rhythm Strip: Sinus Rhythm Rate: 73 Ectopy: PAC(s) EKG Initial EKG: Attestation: I personally reviewed and interpreted this EKG as follows: Interpretation: Sinus Rhythm and No Acute Injury Pattern Comments: Normal sinus rhythm rate of 73. PACs. No acute signs of RI or ischemia. Discharge Plan Dx/Rx/DC Orders Clinical Impression: Adult failure to thrive, Acute dehydration, History of Parkinson's disease Disposition Disposition: Acute Care Hospital [facility]
[2021-09-29] MEDS: 0.9% Normal Saline 1,000 ML 1000 ML IV (14:19)
[2021-09-29 14:27] LABS: Absolute Lymphocyte Count 0.56 X10^3/uL (0.83-4.51); Absolute Neutrophil Count 4.8 X10^3/uL (2.0-7.7); Basophil# 0.02 X10^3/uL; Basophil% 0.3 % (0-1); Eosinophil# 0.05 X10^3/uL; Eosinophils% 0.8 % (0-5); Hematocrit 34.2 % (37-47); Lymphocyte # 0.56 X10^3/ul (0.83-4.51); Lymphocyte % 9.4 % (19-41); Mean Corp Hgb Conc 35.1 g/dL (32-36); Mean Corpuscular Hgb 32.7 pg (27.0-32.0); Mean Corpuscular Volume 93.2 fL (81-99); Mean Platelet Vol. 10.1 fl (6.2-12.0); Monocyte# 0.51 X10^3/uL; Monocyte% 8.6 % (0-10); NRBC Flagged by Analyzer 0 % (0-5); Neutrophil % 80.6 % (47-70); POSITIVE DIFFERENTIAL YES; Platelet Count 217 K/mm3 (150-450); RBC Distribution Width CV 11.9 % (11.6-14.6); RBC Distribution Width SD 41.5 fl (35.1-43.9); Red Blood Count 3.67 M/mm3 (4.2-5.4)
--- NOTE | 2021-09-29 14:32 | RAD_ITS ---
STUDY: X-RAY CHEST REASON FOR EXAM: Female, 81 years old. Weakness TECHNIQUE: Single AP portable view of the chest. COMPARISON: Comparison is made with prior study dated 09/30/2020. FINDINGS: There is hyperinflation of the lungs consistent with chronic obstructive lung disease (COPD). There is no demonstrated pleural abnormality. Normal size heart. Normal mediastinum and osito. Normal visualized pulmonary arteries. There is atherosclerotic calcification of the aortic arch with tortuosity. Normal visualized thoracic spine. Normal visualized ribs, clavicles, and shoulders. There is no demonstrated abnormality of the visualized soft tissue structures of the upper abdomen. RAD/Chest 1 View (Portable) IMPRESSION: Hyperinflation. The lungs are clear. Electronically Signed: Charles Burgos MD at 14:52 EDT ,
[2021-09-29 14:38] LABS: Differential Indicated SCAN CRITERIA MET
[2021-09-29 14:41] LABS: ALB/GLOB Ratio 1.2 RATIO (0.9-2.4); AST(SGOT) 28 U/L (15-37); Alanine Aminotransfer ALT/SGPT 10 U/L (13-56); Albumin, Serum 3.3 g/dL (3.2-5.0); Alkaline Phosphatase 75 U/L (45-117); Anion Gap 2 (5-15); BUN 50 mg/dL (7-18); Calcium,Total 9.1 mg/dL (8.5-10.1); Chloride 107 mmol/L (98-107); Creatinine, Serum 1.25 mg/dL (0.55-1.02); EST Glomerular Filtration Rate 44 mL/min (>60); Est Glom Filt Rate - Afr Amer 53 mL/min (>60); Estimated Creatinine Clearance 26.41 ml/min; Globulin 2.8 g/dL (2.2-4.2); Glucose 143 mg/dL (74-106); Potassium 4.5 mmol/L (3.5-5.1); Protein, Total 6.1 g/dL (6.4-8.2); Sodium Level 142 mmol/L (136-145)
[2021-09-29 15:32] LABS: Bacteria 0 SEEN /hpf (None Seen); Mucous, Urine 0 SEEN /hpf (<or=2+); Red Blood Cells-Urine 0 SEEN /hpf (0-5)
--- NOTE | 2021-09-29 15:35 | MRI_ITS ---
STUDY: MR CHOLANGIOPANCREATOGRAPHY (MRCP) REASON FOR EXAM: Female, 81 years old. PAIN CBD STONES PANCREATITIS dilated biliary ducts, wt loss, decreased appetite TECHNIQUE: Standard MRCP technique was utilized. 3-D postprocessing images were obtained. COMPARISON: CT Sep 29 2021 3:02pm FINDINGS: Gall Bladder: Normal gallbladder and extrahepatic biliary system. Cystic duct: Normal with no demonstrated fixed filling defect. Intrahepatic ducts: There is intrahepatic ductal dilation. Common hepatic duct: Normal with no demonstrated fixed filling defect, dilation or stricture. Common bile duct: Normal with no demonstrated fixed filling defect, dilation or stricture. Common bile duct diameters 6.3mm. There is normal distal tapering. Pancreatic duct: Normal with no demonstrated fixed filling defect, dilation or stricture. MRI/MRCP Abdomen without Contrast IMPRESSION: Mild dilation of the common bile duct. However,There is normal distal tapering. No obstructing stone. Electronically Signed: Godfrey Staley MD at 19:33 EDT ,
[2021-09-29 15:37] LABS: Color, Urine Yellow (Yellow); Glucose, Dipstick Normal (Normal); Ketone-Dipstick Negative (Negative); Leukocyte Esterase-Dipstick 25 /ul (Negative); Nitrite-Dipstick Negative (Negative); Occult Blood-Urine Negative /ul (Negative); Protein-Dipstick 30 mg/dl (Negative); Urine Bilirubin Dipstick Negative (Negative); Urine Clarity Clear (Clear); Urine Urobilinogen Normal (Normal)
--- NOTE | 2021-09-29 15:37 | HP.PCM.HOS_ITS ---
[facility] - General General Date of Admission: 09/29/21 Date of Service: 09/29/21 Chief Complaint: Failure to thrive HPI Narrative LAZARO STEELE, is a 81 F who presented to the emergency department at [facility] on 09/29/2021 at the instruction of her primary care physician, Dr. Christianson, secondary to worsening weakness, weight loss, and debility. At baseline, the patient lives with her son in the basement. Her son indicates that her oral intake has decreased over the last several days and actually over the last month or so. She has had approximately 12 to 14 pound weight loss in the last month. She has had no change in bowel movements, no nausea or vomiting, no night sweats, chest pain, fever or chills, shortness of breath, or tingling numbness. Her weakness has been worsening generalized weakness with no focal deficits and she states her appetite is poor because nothing tastes good and she is just not hungry. Her oral liquid intake has decreased as well per discussion with the son. She typically ambulates without difficulty and only uses a walker when she goes out of the house. Dr. Christianson has ordered a CEA and CA 19-9 both of which were within normal limits. She evidently had a positive Cologuard not that long ago but has yet to decide if she wants to proceed with a colonoscopy. She did complain of some intermittent left lower quadrant pain which is not present at that time of my evaluation. Upon presentation the emergency department her temperature was 96.3, heart rate 88, blood pressure 110/99, respiratory rate 15, oxygen saturations were 97% on room air. Her CBC is overall unremarkable however she does have a left shift with a neutrophilia but a normal white count. Her chemistry panel shows a mildly elevated serum bicarbonate, elevated BUN and serum creatinine compared to baseline at 50 and 1.25 (baseline serum creatinine 1.0-1.1). Her LFTs are unremarkable. Bilirubin is normal. Her UA is not consistent with infection and has no ketones. CT of her abdomen and pelvis with IV contrast was performed and showed central intrahepatic biliary duct dilation and a contracted gallbladder with evidence of hepatic steatosis. EKG shows normal sinus rhythm with normal intervals and no signs of acute ischemia. Chest x-ray showed hyperinflation but no acute abnormalities. In the emergency department she was treated with IV fluids and request for admission was made. [facility] Medical History (Updated 09/29/21 @ 15:[address] Sandra Green, DO) Abnormal findings on diagnostic imaging of heart and coronary circulation Asymptomatic premature ventricular contractions Atherosclerotic heart disease of [place] coronary artery without angina pectoris Chest pain, unspecified Coronary artery disease Dyspnea on exertion Essential hypertension Family history of heart disease Fatigue Hyperlipidemia Hypertension Long-term use of high-risk medication Non-rheumatic mitral valve stenosis Nonrheumatic mitral valve prolapse Nonrheumatic mitral valve stenosis with insufficiency MAGED (obstructive sleep apnea) Palpitations Parkinson disease Paroxysmal atrial tachycardia PND (post-nasal drip) Premature atrial contractions Premature ventricular contractions Pure hypercholesterolemia Shortness of breath Home Medications aspirin 81 mg chewable tablet 81 mg PO DAILY@0800 03/31/13 [History Last Taken Unknown] rotigotine 2 mg/24 hour transdermal 24 hour patch 6 mg TRANSDERM. DAILY 10/24/15 [History Last Taken Unknown] red yeast rice 600 mg capsule 600 mg PO DAILY 07/13/16 [History Last Taken Unknown] albuterol sulfate 90 mcg/actuation aerosol inhaler (ProAir HFA) 2 puff inhalation Q6H PRN SOB 04/18/18 [History Last Taken Unknown] lisinopril 5 mg tablet 5 mg PO DAILY 90 days #90 tabs 04/18/18 [History Last Taken Unknown] PEP device #1 ea 07/15/18 [Rx Last Taken Unknown] calcium carbonate 500 mg calcium (1,250 mg) tablet (Calcium 500) 1,000 mg PO DAILY 07/30/19 [History Last Taken Unknown] metoprolol tartrate 25 mg tablet 25 mg PO .COMPLEX 07/30/19 [History Last Taken Unknown] sertraline 100 mg tablet 100 mg PO DAILY 07/30/19 [History Last Taken Unknown] clonazepam 0.5 mg tablet 0.5 mg PO BID 08/11/20 [History Last Taken Unknown] albuterol sulfate 2.5 mg/3 mL (0.083 %) solution for nebulization 2.5 mg (3 mL) inhalation Q4H PRN Sob &/Or Wheezing #180 mL 11/10/20 [Rx Last Taken Unknown] budesonide 1 mg/2 mL suspension for nebulization 1 mg (2 mL) inhalation BID #60 mL 11/10/20 [Rx Last Taken Unknown] mirtazapine 30 mg tablet 30 mg PO DAILY 05/03/21 [History Last Taken Unknown] carbidopa 31.25 mg-levodopa 125 mg-entacapone 200 mg tablet 1 tab PO TID 09/29/21 [History Last Taken 09/29/21] carbidopa ER 50 mg-levodopa 200 mg tablet,extended release 1 tab PO QHS 09/29/21 [History Last Taken 09/28/21] Allergy/AdvReac Type Severity Reaction Status Date / Time simvastatin Allergy Unknown Verified 09/29/21 13:21 Sulfa (Sulfonamide Allergy Unknown Verified 09/29/21 13:21 Antibiotics) Family History Father CAD (coronary artery disease) Myocardial infarction Surgical History History of shoulder surgery Social History Smoking Status: Never smoker second hand exposure: No alcohol intake: never substance use type: does not use caffeine: No what type of physical activity do you participate in: walking frequency: 1-2 times per week duration: 30-45 minutes/day seatbelt use: always do you feel safe at home: Yes ROS Constitutional Constitutional: Reports anorexia, change in weight, fatigue, malaise and weakness; Denies chills, fever(s), night sweats or other Eyes Eyes: Denies blurry vision, change in eye color, change in vision, discharge from eye(s), double vision, erythema, eye pain, loss of vision or other ENT HEENT: Reports other Details: Change in taste ; Denies abnormal hearing, dysphagia, ear pain, epistaxis, headache(s), hearing loss, nasal congestion, nasal discharge, post nasal drip, sinus pressure or sore throat Cardiovascular Cardiovascular: Denies chest pain, claudication, dyspnea on exertion, edema, lightheadedness, orthopnea, palpitations, paroxysmal nocturnal dyspnea, rapid heart rate, syncope or other Respiratory/Chest Respiratory/Chest: Denies cough, dyspnea, excessive phlegm production, hemoptysis, productive cough, shortness of breath at rest, shortness of breath with exertion, wheezing or other Gastrointestinal Gastrointestinal: Reports abdominal pain; Denies coffee ground emesis, constipation, diarrhea, dyspepsia, hematemesis, hematochezia, loose stools, melena, nausea, vomiting or other Genitourinary Genitourinary: Reports burning urination and urinary frequency; Denies difficulty urinating, dysuria, hematuria, nocturia, urinary hesitancy, urinary incontinence, urinary urgency or other Musculoskeletal Musculoskeletal: Denies arthralgias, back pain, joint pain, joint stiffness, joint swelling, myalgias, neck pain or other Neurologic Neurologic: Denies abnormal gait, abnormal speech, confusion, disequilibrium, dizziness, focal weakness, headache(s), numbness, paresthesias, seizure-like activity, seizures, syncope, tingling, tremor(s) or other Psychiatric Psychiatric: Reports depression; Denies anxiety, homicidal ideation, suicidal ideation or other Endocrine Endocrinology: Denies change in body appearance, cold intolerance, excessive sweating, heat intolerance, polydipsia, polyuria or other Hematologic/Lymphatic Hematologic/Lymphatic: Denies anemia, easy bleeding, easy bruising, lymphadenop athy or other Allergic/Immunologic Allergic/Immunologic: Denies rhinitis, hives, eczemia, asthma or other Vital Signs Vital Signs Vital Signs: 09/29/21 13:21 09/29/21 14:35 09/29/21 13:24 Temperature 96.3 F L 96.3 F L Temperature Source Temporal Temporal Pulse Rate 88 88 Respiratory Rate 15 15 Respiratory Effort Normal Non-Labored Respiratory Pattern Normal Blood Pressure 110/99 H 110/99 H Blood Pressure Mean 102 102 Pulse Ox 97 97 Oxygen Delivery Method Room Air Room Air Weight Weight: 47.4 kg Body Mass Index (BMI) 18.5 Physical Exam Const alert, oriented x3 and no apparent distress Constitutional Narrative: Thin, elderly white female lying in bed, appears comfortable, nontoxic General Appearance: cooperative HEENT normocephalic and head/scalp atraumatic HEENT Narrative: Temporal wasting, mild hearing loss, mucous membranes are slightly dry, dentition is good for age, Mallampati 2 Eyes PERRL, EOMs intact bilaterally and conjunctivae normal Eyes Narrative: No scleral icterus Neck no lymphadenopathy, supple and no JVD Neck Narrative: Trachea midline, no thyroid enlargement Resp normal respiratory effort, no retractions, no use of accessory muscles and clear to auscultation bilaterally Auscultation: Negative for crackles, rales, rhonchi or wheezes Cardio regular rate, regular rhythm, S1 normal heart sound, S2 normal heart sound, no murmurs, no rub, no gallops, no clicks and no JVD GI normal to inspection, nondistended, normoactive bowel sounds, soft to palpation, non-tender and non-distended Extremity no clubbing, cyanosis or edema Extremity Narrative: Decreased muscle mass Skin no rashes or lesions noted, no wounds, no jaundice, no petechiae and no mottling Skin Narrative: Skin tenting with abnormal turgor Neuro oriented x3, CN's II-XII intact bilaterally, moves all extremities and no focal motor deficits Neuro Narrative: Significant generalized weakness noted bilateral upper and lower extremities proximal greater than distal Sensorium / Orientation: awake, alert, oriented to person, oriented to place and oriented to time Speech: speech normal Psych Psych Narrative: Affect seems slightly flattened mood seems somewhat depressed Results Lab / Micro Data Attestation: I reviewed the patient's lab results. Result Diagrams: 09/29/21 14:13 09/29/21 14:13 Labs: Laboratory Results - last 24 hr 09/29/21 14:13: WBC 6.0, RBC 3.67 L, Hgb 12.0, Hct 34.2 L, MCV 93.2, MCH 32.7 H, MCHC 35.1, RDW Std Deviation 41.5, RDW Coeff of Ton 11.9, Plt Count 217, MPV 10.1, Immature Gran % (Auto) 0.300, Neut % (Auto) 80.6 H, Lymph % (Auto) 9.4 L, Cooper % (Auto) 8.6, Eos % (Auto) 0.8, Baso % (Auto) 0.3, Absolute Neuts (auto) 4.8, Absolute Lymphs (auto) 0.56 L, Nucleated RBC % 0, Differential Comment COMMENT 09/29/21 14:13: Sodium 142, Potassium 4.5, Chloride 107, Carbon Dioxide 33.0 H, Anion Gap 2 L, BUN 50 H, Creatinine 1.25 H, Estim Creat Clear Calc 26.41, Est GFR (MDRD) Af Amer 53 L, Est GFR (MDRD) Non-Af 44 L, BUN/Creatinine Ratio 40.0 H , Glucose 143 H, Calcium 9.1, Total Bilirubin 0.50, AST 28, ALT 10 L, Alkaline Phosphatase 75, Total Protein 6.1 L, Albumin 3.3, Globulin 2.8, Albumin/Globulin Ratio 1.2 Rhythm Strip Rhythm Strip: Sinus Rhythm Rate: 73 Ectopy: PAC(s) Radiology Impression Abdomen/Pelvis CT 09/29/21 13:50 IMPRESSION: Stable mild degree of central intrahepatic biliary ductal dilatation. Contracted gallbladder. Electronically Signed: Charles Burgos MD at 15:23 EDT , Chest X-Ray 09/29/21 14:32 IMPRESSION: Hyperinflation. The lungs are clear. Electronically Signed: Charles Burgos MD at 14:52 EDT , Assessment & Plan Assessment/Plan (1) Adult failure to thrive: (2) Acute dehydration: (3) Dilated bile duct: (4) Debility: (5) Moderate malnutrition: PLAN: Plan Failure to thrive/debility -Decreased appetite and functional status over the last month with significant worsening over the last 48 hours -Typically ambulates without any assistive device unless she is going out of the house for extended periods of time and then she uses a walker -Dietitian consult -PT/OT consultation -Patient may need placement at discharge depending on functional status Acute dehydration -No RUSTY but BUN is 50 and serum creatinine is 1.25 which is above her baseline, serum bicarb is also elevated compared to baseline -1 L IV fluids given the emergency department -Continue IV fluids with LR at 75 cc/h -Repeat basic metabolic profile in the a.m. Dilated biliary ducts -Central intrahepatic biliary duct dilation with a contracted gallbladder -With weight loss and decreased appetite we will check MRCP -LFTs are within normal limits Suspected moderate malnutrition/weight loss -Patient with about 12 to 14 pounds of weight loss over the last month -Poor appetite -Supplements added -Dietitian consult -Cologuard was done as an outpatient and was positive and she is considering a colonoscopy -CEA and CA 19-9 were done and were both within normal limits within the last 24 hours Intermittent left lower quadrant pain -Currently is pain-free -CT of the abdomen pelvis was unremarkable other than scattered sigmoid diverticula however it was not with oral contrast -Monitor clinically Hepatic steatosis -This appears to be chronic -Continue medical management for contributing factors History of Parkinson's disease -Continue home levodopa carbidopa -Continue home rotigotine patch COPD/asthma -Continue as needed albuterol nebulizers -Continue budesonide CAD -Mild per cath from 2017 -Continue home medications History of MVP -Has been clinically stable -No current issues Hyperlipidemia -Resume red yeast rice on discharge Hypertension -Continue metoprolol -Continue home lisinopril MAGED -Patient with history of MAGED but noncompliant with CPAP -Does not tolerate masks PAH -Stable -Continue medications DVT prophylaxis -Lovenox daily -SCDs CODE STATUS -DNR CCA with no intubation as per discussion in the emergency department with the patient (son at bedside) Charges/Coding Visit Charges Inpatient E&M: 86575 Init Hosp L3
[2021-09-29 15:48] LABS: Squamous Epithelial Cells - UA 0-5 SEEN /hpf (5-10); White Blood Cells 0-5 SEEN /hpf (0-5)
[2021-09-29] MEDS: Lactated Ringers 1,000 ML 75 ML IV (17:19)
[2021-09-29] MEDS: Carbidopa/Levodopa 25/100 Tablet PO ×2 (20:22→22:16)
[2021-09-29] MEDS: Metoprolol Tartrate 25 MG Tablet PO (20:22)
[2021-09-29] MEDS: Budesonide Respules 0.5 MG/2 ML AMPUL.NEB. INHALATION (20:30)
[2021-09-29] MEDS: 0.9% Saline Lock 10 ML Syringe IV (22:08)
[2021-09-29] MEDS: Mirtazapine 30 MG Tablet PO (22:09)
[2021-09-29] MEDS: clonazePAM 0.5 MG Tablet PO (22:16)
[2021-09-30 02:49] VITALS: BP 106/55; PULSE 59; RESP 16; TEMP 36.5; O2SAT 99
[2021-09-30] MEDS: Carbidopa/Levodopa 25/100 Tablet PO ×3 (05:22→16:21)
[2021-09-30] MEDS: Enoxaparin 30 MG/0.3 ML Syringe SC (05:22)
[2021-09-30 06:18] LABS: Absolute Lymphocyte Count 0.71 X10^3/uL (0.83-4.51); Absolute Neutrophil Count 4.8 X10^3/uL (2.0-7.7); Basophil# 0.02 X10^3/uL; Basophil% 0.3 % (0-1); Eosinophil# 0.16 X10^3/uL; Eosinophils% 2.6 % (0-5); Hemoglobin 10.3 g/dL (12.0-15.0); Lymphocyte # 0.71 X10^3/ul (0.83-4.51); Lymphocyte % 11.5 % (19-41); Mean Corp Hgb Conc 33.2 g/dL (32-36); Mean Corpuscular Hgb 31.6 pg (27.0-32.0); Mean Corpuscular Volume 95.1 fL (81-99); Mean Platelet Vol. 10.3 fl (6.2-12.0); Monocyte# 0.46 X10^3/uL; Monocyte% 7.5 % (0-10); NRBC Flagged by Analyzer 0 % (0-5); Neutrophil # 4.78 X10^3/uL (2.7-7.7); Neutrophil % 77.8 % (47-70); Platelet Count 189 K/mm3 (150-450); Red Blood Count 3.26 M/mm3 (4.2-5.4); White Blood Count 6.2 K/mm3 (4.4-11.0)
[2021-09-30] MEDS: Budesonide Respules 0.5 MG/2 ML AMPUL.NEB. INHALATION (06:43)
[2021-09-30 06:44] VITALS: PULSE 65; RESP 96
[2021-09-30 06:45] VITALS: O2SAT 95
[2021-09-30 06:54] LABS: Anion Gap 1 (5-15); BUN 33 mg/dL (7-18); BUN/Creat Ratio 38.5 RATIO (10-20); Calcium,Total 8.5 mg/dL (8.5-10.1); Chloride 111 mmol/L (98-107); Creatinine, Serum 0.86 mg/dL (0.55-1.02); EST Glomerular Filtration Rate 67 mL/min (>60); Est Glom Filt Rate - Afr Amer 82 mL/min (>60); Estimated Creatinine Clearance 38.87 ml/min; Glucose 72 mg/dL (74-106); Magnesium 2.1 mg/dL (1.6-2.6); Phosphorus 2.6 mg/dL (2.5-4.9); Potassium 4.1 mmol/L (3.5-5.1); Sodium Level 142 mmol/L (136-145); Thyroid Stim Hormone (TSH) 1.05 uIU/mL (0.358-3.74)
--- NOTE | 2021-09-30 07:10 | PCM.PN.HOSP ---
Subjective Subjective Feels well. Would like to go home. Has care-givers at home. Objective Data Objective Data Vital Signs: Vital Signs Temp Pulse Resp BP Pulse Ox O2 Del Method 36.5 C L 65 96 H 106/55 L 95 Room Air 09/30/21 02:49 09/30/21 06:44 09/30/21 06:44 09/30/21 02:49 09/30/21 06:45 09/30/21 06:45 Oxygen Delivery Method Room Air Weight: 47.99 kg Body Mass Index (BMI) 18.7 Intake & Output: Intake and Output for Last 24 Hours 09/28/21 09/29/21 09/30/21 23:59 23:59 23:59 Intake Total 1000 / 1400 500 / 500 Balance 1000 / 1400 500 / 500 Lab / Micro Data Result Diagrams: 09/30/21 05:00 09/30/21 05:00 Labs: Laboratory Results - last 24 hr 09/29/21 14:13: WBC 6.0, RBC 3.67 L, Hgb 12.0, Hct 34.2 L, MCV 93.2, MCH 32.7 H, MCHC 35.1, RDW Std Deviation 41.5, RDW Coeff of Ton 11.9, Plt Count 217, MPV 10.1, Immature Gran % (Auto) 0.300, Neut % (Auto) 80.6 H, Lymph % (Auto) 9.4 L, [place] % (Auto) 8.6, Eos % (Auto) 0.8, Baso % (Auto) 0.3, Absolute Neuts (auto) 4.8, Absolute Lymphs (auto) 0.56 L, Nucleated RBC % 0, Differential Comment COMMENT 09/29/21 14:13: Sodium 142, Potassium 4.5, Chloride 107, Carbon Dioxide 33.0 H, Anion Gap 2 L, BUN 50 H, Creatinine 1.25 H, Estim Creat Clear Calc 26.41, Est GFR (MDRD) Af Amer 53 L, Est GFR (MDRD) Non-Af 44 L, BUN/Creatinine Ratio 40.0 H, Glucose 143 H, Calcium 9.1, Total Bilirubin 0.50, AST 28, ALT 10 L, Alkaline Phosphatase 75, Total Protein 6.1 L, Albumin 3.3, Globulin 2.8, Albumin/Globulin Ratio 1.2 09/29/21 15:24: Urine Color Yellow, Urine Clarity Clear, Urine pH 7.0, Ur Specific [place] 1.010, Urine Protein 30 H, Urine Glucose (UA) Normal, Urine Ketones Negative, Urine Occult Blood Negative, Urine Nitrite Negative, Urine Bilirubin Negative, Urine Urobilinogen Normal, Ur Leukocyte Esterase 25 H, Urine RBC 0 SEEN, Urine WBC 0-5 SEEN, Ur Squamous Epith Cells 0-5 SEEN, Urine Bacteria 0 SEEN, Urine Mucus 0 SEEN 09/30/21 05:00: WBC 6.2, RBC 3.26 L, Hgb 10.3 L, Hct 31.0 L, MCV 95.1, MCH 31.6, MCHC 33.2 D, RDW Std Deviation 42.0, RDW Coeff of Ton 12.0, Plt Count 189, MPV 10.3, Immature Gran % (Auto) 0.300, Neut % (Auto) 77.8 H, Lymph % (Auto) 11.5 L, [place] % (Auto) 7.5, Eos % (Auto) 2.6, Baso % (Auto) 0.3, Absolute Neuts (auto) 4.8, Absolute Lymphs (auto) 0.71 L, Nucleated RBC % 0 09/30/21 05:00: Sodium 142, Potassium 4.1, Chloride 111 H, Carbon Dioxide 30.0, Anion Gap 1 L, BUN 33 H, Creatinine 0.86, Estim Creat Clear Calc 38.87, Est GFR (MDRD) Af Amer 82, Est GFR (MDRD) Non-Af 67, BUN/Creatinine Ratio 38.5 H, Glucose 72 L, Calcium 8.5, Phosphorus 2.6, Magnesium 2.1, TSH 1.05 Radiography Diagnostic Testing: Radiology Impression Abdomen/Pelvis CT 09/29/21 13:50 IMPRESSION: Stable mild degree of central intrahepatic biliary ductal dilatation. Contracted gallbladder. Electronically Signed: Charles Burgos MD at 15:23 EDT , Chest X-Ray 09/29/21 14:32 IMPRESSION: Hyperinflation. The lungs are clear. Electronically Signed: Charles Burgos MD at 14:52 EDT , MRCP 09/29/21 15:35 IMPRESSION: Mild dilation of the common bile duct. However,There is normal distal tapering. No obstructing stone. Electronically Signed: Godfrey Staley MD at 19:33 EDT , Rhythm Strip Rhythm Strip: Sinus Rhythm Rate: 73 Ectopy: PAC(s) Physical Exam Const alert and no apparent distress Constitutional Narrative: up in chair eating breakfast. Resp normal respiratory effort, no retractions, no use of accessory muscles and clear to auscultation bilaterally Cardio regular rate, regular rhythm, S1 normal heart sound and S2 normal heart sound Assessment & Plan Assessment/Plan (1) Adult failure to thrive: PLAN: -Decreased appetite and functional status over the last month with significant worsening over the last 48 hours -Typically ambulates without any assistive device unless she is going out of the house for extended periods of time and then she uses a walker -Dietitian consult -PT/OT consultation -Home w HHC (pt has care-givers) v SNF (2) Acute dehydration: PLAN: -Improved -No RUSTY but BUN is 50 and serum creatinine is 1.25 which is above her baseline, serum bicarb is also elevated compared to baseline -Received IVF (3) Dilated bile duct: PLAN: -Central intrahepatic biliary duct dilation with a contracted gallbladder -MRCP shows mild dilation of CBD, but normal distal tapering. No stone. -LFTs are within normal limits -No additional work up (4) Moderate malnutrition: PLAN: -Patient with about 12 to 14 pounds of weight loss over the last month -Poor appetite -Supplements added -Dietitian consult PLAN: Plan + Cologard -Cologuard was done as an outpatient and was positive and she is considering a colonoscopy, defer to outpt -CEA and CA 19-9 were done and were both within normal limits Intermittent left lower quadrant pain -Currently is pain-free -CT of the abdomen pelvis was unremarkable other than scattered sigmoid diverticula however it was not with oral contrast -Monitor clinically Hepatic steatosis -This appears to be chronic -Continue medical management for contributing factors History of Parkinson's disease -Continue home levodopa carbidopa -Continue home rotigotine patch COPD/asthma -Continue as needed albuterol nebulizers -Continue budesonide CAD -Mild per cath from 2017 -Continue home medications History of MVP -Has been clinically stable -No current issues Hyperlipidemia -Resume red yeast rice on discharge Hypertension -Continue metoprolol -Continue home lisinopril MAGED -Patient with history of MAGED but noncompliant with CPAP -Does not tolerate masks PAH -Stable -Continue medications DVT prophylaxis -Lovenox daily -SCDs CODE STATUS -DNR CCA with no intubation as per discussion in the emergency department with the patient (son at bedside) Charges/Coding Visit Charges Inpatient E&M: 35885 Subs Hosp L2
[2021-09-30 08:24] VITALS: BP 148/69; PULSE 65; RESP 18; TEMP 36.3; O2SAT 100
[2021-09-30] MEDS: Sertraline 100 MG Tablet PO (08:37)
[2021-09-30] MEDS: Lisinopril 5 MG Tablet PO (08:37)
[2021-09-30] MEDS: Aspirin 81 MG TAB.CHEW PO (08:37)
[2021-09-30] MEDS: Lactated Ringers 1,000 ML 75 ML IV (08:39)
--- NOTE | 2021-09-30 10:00 | CASEMGMT ---
Addendum entered by Felipa Francisco 09/30/21 10:47: Received order for Palliative Care. [facility] Palliative Screening Sheet completed, emailed referral to palliative. Original Note: PEDRO PANG Assessment: Face to Face with pt for initial transition planning/care coordination assessment. PEDRO PANG introduced self and role at [facility], pt voices understanding and consents to assessment. Pt is A/O x4 and answers all questions appropriately at this time. Pt sitting up in chair in no distress. Care providers, pharmacy, and demographics verified/updated. Admitting Dx: FTT, debility PCP:Meghan Specialists:Ashutosh puljack; Cesar, cardio; Kamran at [facility], pt is unsure type of doctor Preferred Pharmacy: [facility] Insurance: [employer] Prescription Benefit: yes LW/HPOA: Pt states she has a LW/DPOA and her DPOA is her son Vladimir Azar. She is aware this is not on file at [facility] and she may bring in to be scanned into the chart. LNOK: Vladimir Azar, son; Germania Melton, dtr; Jerri Morse, ; Eladio Bravo, live in who does meals and laundry for patient. Living Arrangements: Pt lives with live in . Pt reports she is I in ADL's but was not eating at home. Pt denies concerns at home. Transportation: Pt does not drive. States Jerri transports her to medical appts. DME/HHC/SNF: Pt has a FWW at home but does not use. States she has a shower chair as well as grab bars in the bathroom. Pt denies hx of HHC or SNF stays. Pt states no concerns with going home at time of dc. Discussed having HHC SN and therapy, pt agreeable to this. Pt then asks about hospice. Answered pt questions regarding hospice. She states she may need this later on. Discussed palliative care with her and also adding SW to her HH referral. Pt is agreeable to this. Pt would like her son Vladimir to be contacted to discuss dc plan. Patient was provided a list of C providers including quality and resource use data and consistent with the patient?s preferred geographic region, medical needs, and insurance network. Pt to review and PEDRO PANG to check back. Pt states no further concerns/needs. CM to follow. Advised pt to ask CM if any further question/concerns/needs arise, voices understanding. Pt Goal: Home with HHC Plan: Home with HHC SN, PT, OT and ENVIRONMENTAL HEALTH AND SAFETY MANAGER; Palliative Care referral.
[2021-09-30] MEDS: clonazePAM 0.5 MG Tablet PO (10:15)
[2021-09-30] MEDS: Calcium (Elemental) 500 MG Tablet 1000 MG PO (10:15)
--- NOTE | 2021-09-30 11:45 | CASEMGMT ---
Addendum entered by Felipa Francisco 09/30/21 11:53: Received returned call from pt son, he states pt is surrounded by help at home. He is agreeable to the plan of HHC and Palliative Care referral. He denies questions and thanks PEDRO PANG for the call. Original Note: PEDRO PANG back into pt room, pt friend Jeimy visiting. Pt has chosen [facility] as first choice and [facility] as second choice. Discussed again Palliative Services, pt is aware referral was made. BETZY Cardona at [facility], referral made. Will await acceptance. TC to pt son to discuss dc plan, left message on with return call information.
--- NOTE | 2021-09-30 12:06 | DCINST_ITS ---
Discharge Instructions Diet Discharge Diet: No restrictions Dressing / Incision Call your doctor if you observe: Fainting spells and - (falls) Follow Up Care Test Results: Test results from this visit will be discussed in further detail at your follow- up appointment, if applicable. Discharge Plan Admission Admit Date/Time: 09/29/21 15:30 Primary Reason for Your Visit: debility Attending Provider: Sal Morton Primary Care Provider: Diane Christianson Consulting Providers: Sandra Green Discharge Orders/Prescriptions Prescriptions: Continued lisinopril 5 mg tablet 5 mg PO DAILY 90 Days Qty: 90 Label Comments: albuterol sulfate [ProAir HFA] 90 mcg/actuation HFA aerosol inhaler 2 puff INHALATION Q6H PRN (Reason: SOB) metoprolol tartrate 25 mg tablet 25 mg PO DAILY sertraline 100 mg tablet 100 mg PO DAILY calcium carbonate [Calcium 500] 500 mg calcium (1,250 mg) tablet 1,000 mg PO DAILY (DME) PEP device See Rx Instructions .ROUTE .MEDSUPPLY Qty: 1 0RF Rx Instructions: with training clonazepam 0.5 mg tablet 0.5 mg PO BID mirtazapine 30 mg tablet 30 mg PO DAILY aspirin 81 MG tablet,chewable 81 mg PO DAILY@0800 rotigotine 2 MG patch 6 mg TRANSDERM. DAILY red yeast rice 600 MG capsule 600 mg PO DAILY carbidopa-levodopa 50-200 mg tablet extended release 1 tab PO QHS hdthhypxr-pekyvidm-ybbtavhsxq 31.25-125-200 mg tablet 1 tab PO TID albuterol sulfate 2.5 mg /3 mL (0.083 %) solution for nebulization 2.5 mg inhalation Q4H PRN (Reason: Sob &/Or Wheezing) Qty: 180 3RF budesonide 1 mg/2 mL suspension for nebulization 1 mg inhalation BID Qty: 60 6RF Referrals / Follow Up: Diane Christianson MD [Primary Care Provider] - Within 2 Weeks Disposition Disposition (needs filled in before D/C Order can be placed): Home Health Service
--- NOTE | 2021-09-30 12:09 | PCM.DC.SUM ---
Providers Date of Admission: 09/29/21 Primary Care Physician: Dr. Diane Christianson MD Reason For Visit: FAILURE TO THRIVE/DEBILITY Diagnosis Discharge Diagnosis (1) Adult failure to thrive: Status: Acute Code(s): R62.7 - Adult failure to thrive Plan: -Decreased appetite and functional status over the last month with significant worsening over the last 48 hours -Typically ambulates without any assistive device unless she is going out of the house for extended periods of time and then she uses a walker -Dietitian consult -PT/OT consultation -[facility] w [facility] (pt has care-givers) (2) Acute dehydration: Status: Acute Code(s): E86.0 - Dehydration Plan: -Improved -No RUSTY but BUN is 50 and serum creatinine is 1.25 which is above her baseline, serum bicarb is also elevated compared to baseline -Received IVF (3) Dilated bile duct: Status: Acute Code(s): K83.8 - Other specified diseases of biliary tract Plan: -Central intrahepatic biliary duct dilation with a contracted gallbladder -MRCP shows mild dilation of CBD, but normal distal tapering. No stone. -LFTs are within normal limits -No additional work up (4) Moderate malnutrition: Status: Acute Code(s): E44.0 - Moderate protein-calorie malnutrition Plan: -Patient with about 12 to 14 pounds of weight loss over the last month -Poor appetite -Supplements added -Dietitian consult Plan + Cologard -Cologuard was done as an outpatient and was positive and she is considering a colonoscopy, defer to outpt -CEA and CA 19-9 were done and were both within normal limits Intermittent left lower quadrant pain -Currently is pain-free -CT of the abdomen pelvis was unremarkable other than scattered sigmoid diverticula however it was not with oral contrast -Monitor clinically Hepatic steatosis -This appears to be chronic -Continue medical management for contributing factors History of Parkinson's disease -Continue home levodopa carbidopa -Continue home rotigotine patch COPD/asthma -Continue as needed albuterol nebulizers -Continue budesonide CAD -Mild per cath from 2017 -Continue home medications History of MVP -Has been clinically stable -No current issues Hyperlipidemia -Resume red yeast rice on discharge Hypertension -Continue metoprolol -Continue home lisinopril MAGED -Patient with history of MAGED but noncompliant with CPAP -Does not tolerate masks PAH -Stable -Continue medications DVT prophylaxis -Lovenox daily -SCDs CODE STATUS -DNR CCA with no intubation as per discussion in the emergency department with the patient (son at bedside) Medications at Discharge Home Medications aspirin 81 mg chewable tablet 81 mg PO DAILY@0800 03/31/13 rotigotine 2 mg/24 hour transdermal 24 hour patch 6 mg TRANSDERM. DAILY 10/24/15 red yeast rice 600 mg capsule 600 mg PO DAILY 07/13/16 albuterol sulfate 90 mcg/actuation aerosol inhaler (ProAir HFA) 2 puff inhalation Q6H PRN SOB 04/18/18 lisinopril 5 mg tablet 5 mg PO DAILY 90 days #90 tabs 04/18/18 PEP device #1 ea 07/15/18 calcium carbonate 500 mg calcium (1,250 mg) tablet (Calcium 500) 1,000 mg PO DAILY 07/30/19 metoprolol tartrate 25 mg tablet 25 mg PO DAILY 07/30/19 sertraline 100 mg tablet 100 mg PO DAILY 07/30/19 clonazepam 0.5 mg tablet 0.5 mg PO BID 08/11/20 albuterol sulfate 2.5 mg/3 mL (0.083 %) solution for nebulization 2.5 mg (3 mL) inhalation Q4H PRN Sob &/Or Wheezing #180 mL 11/10/20 budesonide 1 mg/2 mL suspension for nebulization 1 mg (2 mL) inhalation BID #60 mL 11/10/20 mirtazapine 30 mg tablet 30 mg PO DAILY 05/03/21 carbidopa 31.25 mg-levodopa 125 mg-entacapone 200 mg tablet 1 tab PO TID 09/29/21 carbidopa ER 50 mg-levodopa 200 mg tablet,extended release 1 tab PO QHS 09/29/21 Medical Records Data Medical Nutrition Assessment Dietitian: Malnutrition Criteria Met Start: 09/30/21 11:17 Freq: Status: Active Protocol: Document 09/30/21 11:17 LUC (Rec: 09/30/21 11:17 LUC [id number]) Nutrition Malnutrition Evidence of Malnutrition Exists Yes Malnutrition (severe): Acute Illness/Injury Evidenced By Suboptimal Energy Intake ( Severe),Weight Loss (Moderate) ,Physical Changes (Mild) Clinical Problem Acute Disease or Injury Related Malnutrition Etiology related to Parkinsons and debility making it difficult for pt to consume adequate nutrition to meet est nutritional needs Signs/Symptoms as evidenced by 16.3% wt loss x 1 year, <50% po intake x > 1 month and fat/muscle wasting (temporal, orbital, buccal regions/ clavicle and arms) Status Active Problem Recommendation Dietitian Recommendations/Changes Will provide fortified foods and add gravies/sauces to meals to make foods more nutritionally dense and to help make foods easier to swallow. Will continue oral nutrition supplement as ordered. Weight / BMI Weight Weight: 47.5 kg Body Mass Index (BMI) 18.7 ABG / Lab / Microbiology Data Result Diagrams: 09/30/21 05:00 09/30/21 05:00 Laboratory: Laboratory Results - last 24 hr 09/29/21 14:13: WBC 6.0, RBC 3.67 L, Hgb 12.0, Hct 34.2 L, MCV 93.2, MCH 32.7 H, MCHC 35.1, RDW Std Deviation 41.5, RDW Coeff of Ton 11.9, Plt Count 217, MPV 10.1, Immature Gran % (Auto) 0.300, Neut % (Auto) 80.6 H, Lymph % (Auto) 9.4 L, Baldwin % (Auto) 8.6, Eos % (Auto) 0.8, Baso % (Auto) 0.3, Absolute Neuts (auto) 4.8, Absolute Lymphs (auto) 0.56 L, Nucleated RBC % 0, Differential Comment COMMENT 09/29/21 14:13: Sodium 142, Potassium 4.5, Chloride 107, Carbon Dioxide 33.0 H, Anion Gap 2 L, BUN 50 H, Creatinine 1.25 H, Estim Creat Clear Calc 26.41, Est GFR (MDRD) Af Amer 53 L, Est GFR (MDRD) Non-Af 44 L, BUN/Creatinine Ratio 40.0 H, Glucose 143 H, Calcium 9.1, Total Bilirubin 0.50, AST 28, ALT 10 L, Alkaline Phosphatase 75, Total Protein 6.1 L, Albumin 3.3, Globulin 2.8, Albumin/Globulin Ratio 1.2 09/29/21 15:24: Urine Color Yellow, Urine Clarity Clear, Urine pH 7.0, Ur Specific Veteran 1.010, Urine Protein 30 H, Urine Glucose (UA) Normal, Urine Ketones Negative, Urine Occult Blood Negative, Urine Nitrite Negative, Urine Bilirubin Negative, Urine Urobilinogen Normal, Ur Leukocyte Esterase 25 H, Urine RBC 0 SEEN, Urine WBC 0-5 SEEN, Ur Squamous Epith Cells 0-5 SEEN, Urine Bacteria 0 SEEN, Urine Mucus 0 SEEN 09/30/21 05:00: WBC 6.2, RBC 3.26 L, Hgb 10.3 L, Hct 31.0 L, MCV 95.1, MCH 31.6, MCHC 33.2 D, RDW Std Deviation 42.0, RDW Coeff of Ton 12.0, Plt Count 189, MPV 10.3, Immature Gran % (Auto) 0.300, Neut % (Auto) 77.8 H, Lymph % (Auto) 11.5 L, Baldwin % (Auto) 7.5, Eos % (Auto) 2.6, Baso % (Auto) 0.3, Absolute Neuts (auto) 4.8, Absolute Lymphs (auto) 0.71 L, Nucleated RBC % 0 09/30/21 05:00: Sodium 142, Potassium 4.1, Chloride 111 H, Carbon Dioxide 30.0, Anion Gap 1 L, BUN 33 H, Creatinine 0.86, Estim Creat Clear Calc 38.87, Est GFR (MDRD) Af Amer 82, Est GFR (MDRD) Non-Af 67, BUN/Creatinine Ratio 38.5 H, Glucose 72 L, Calcium 8.5, Phosphorus 2.6, Magnesium 2.1, TSH 1.05 Radiography Diagnostic Testing: Radiology Impression Abdomen/Pelvis CT 09/29/21 13:50 IMPRESSION: Stable mild degree of central intrahepatic biliary ductal dilatation. Contracted gallbladder. Electronically Signed: Charles Burgos MD at 15:23 EDT , Chest X-Ray 09/29/21 14:32 IMPRESSION: Hyperinflation. The lungs are clear. Electronically Signed: Charles Burgos MD at 14:52 EDT , MRC 09/29/21 15:35 IMPRESSION: Mild dilation of the common bile duct. However,There is normal distal tapering. No obstructing stone. Electronically Signed: Godfrey Staley MD at 19:33 EDT Reading Location ID and State: [facility] / [place] , Service support , D/C Instructions Discharge Diet: No restrictions Call your doctor if you observe: Fainting spells and - (falls) Meaningful Use Info Meaningful Use Diagnoses (Choose all that apply): None applicable Discharge Plan Admission Admit Date/Time: 09/29/21 15:30 Primary Reason for Your Visit: debility Attending Provider: Sal Morton Primary Care Provider: Diane Christianson Consulting Providers: Sandra Green Discharge Orders/Prescriptions Prescriptions: Continued lisinopril 5 mg tablet 5 mg PO DAILY 90 Days Qty: 90 Label Comments: albuterol sulfate [ProAir HFA] 90 mcg/actuation HFA aerosol inhaler 2 puff INHALATION Q6H PRN (Reason: SOB) metoprolol tartrate 25 mg tablet 25 mg PO DAILY sertraline 100 mg tablet 100 mg PO DAILY calcium carbonate [Calcium 500] 500 mg calcium (1,250 mg) tablet 1,000 mg PO DAILY (DME) PEP device See Rx Instructions .ROUTE .MEDSUPPLY Qty: 1 0RF Rx Instructions: with training clonazepam 0.5 mg tablet 0.5 mg PO BID mirtazapine 30 mg tablet 30 mg PO DAILY aspirin 81 MG tablet,chewable 81 mg PO DAILY@0800 rotigotine 2 MG patch 6 mg TRANSDERM. DAILY red yeast rice 600 MG capsule 600 mg PO DAILY carbidopa-levodopa 50-200 mg tablet extended release 1 tab PO QHS fdganunnh-gudyjbct-hewshgqcnn 31.25-125-200 mg tablet 1 tab PO TID albuterol sulfate 2.5 mg /3 mL (0.083 %) solution for nebulization 2.5 mg inhalation Q4H PRN (Reason: Sob &/Or Wheezing) Qty: 180 3RF budesonide 1 mg/2 mL suspension for nebulization 1 mg inhalation BID Qty: 60 6RF Referrals / Follow Up: Diane Christianson MD [Primary Care Provider] - Within 2 Weeks Disposition Disposition (needs filled in before D/C Order can be placed): Home Health Service Charges/Coding Visit Charges Inpatient E&M: 24923 Disch Hosp
--- NOTE | 2021-09-30 13:13 | ST.MBS ---
Modified Barium Swallow - Patient Information Study Date: 09/30/21 Study Time: 13:15 Direct Billable Minutes: 105 Total Minutes procedure & reportin Diagnosis: Adult failure to thrive (R62.7), Parkinson's disease (G20) Referring Physician: Sal Morton Reason for Referral: Objectively assess swallow function, risk for aspiration, and determine recommendations for least restrictive diet textures and compensatory strategies to improve safety of swallow. Medical History: Radha Elkins is a 81 F who presented to the [facility] ED on 09/29/2021 at the instruction of her primary care physician, Dr. Christianson, secondary to worsening weakness, weight loss, and debility. She lives with her son in the basement. Her son reported decreased oral intake of foods and liquids in the past month with 12-14lb weight loss due to decreased appetite and nothing tasting good. Her oral liquid intake has decreased as well per discussion with the son. She has been admitted for management of failure to thrive and debility. Chest x-ray showed hyperinflation but no acute abnormalities. PMH includes CAD, dyspnea on exertion, HTN, fatigue, HLD, MAGED, Parkinson's disease, PND, and shortness of breath (SEE EMR for full PMH). RN concerned with delayed swallow onset and pt reporting trouble swallowing at home. BSE completed 09/30/2021 and the patient was recommended for Easy to Chew textures with extra sauce/gravy / Thin liquids with distant supervision. Additionally, STORAGE ARCHITECT recommended MBS study to objectively assess aspiration risk, as well as concern for esophageal dysphagia. Pt has hx of dysphagia and two previous MBS studies and a barium esophagram. Most recent study on 09/23/2020 revealed mild oropharyngeal dysphagia and recommended regular textures, thin liquids with the following precautions: consider cutting up meat into smaller, easier to chew pieces and adding sauce/gravy, Small Bites, Small Sips, Multiple Swallows - double swallow for every bite and sip, Sitting upright, Distant Supervision. Barium esophagram 12/29/2019 revealed tertiary contractions of the mid esophagus and narrowing of the gastroesophageal junction. Endoscopic correlation is recommended. Pt reports no follow-up after esophagram. Current Diet Ordered: Easy to Chew with extra sauce / Thin liquids Mental Status: WNL Respiratory Status: Oxygenating on Room Air - Penetration-Aspiration Scale Penetration-Aspiration Scale: OBJECTIVE ASSESSMENT OF SWALLOW FUNCTION (QUANTITATIVE ? PER TRIAL): PENETRATION / ASPIRATION SCALE (CAPONE): 1 = does not enter airway 2 = enters airway/above vocal folds/ejected 3 = enters airway/above vocal folds/not ejected 4 = enters airway/contacts vocal folds/ejected 5 = enters airway/contacts vocal folds/not ejected 6 = enters airway/below vocal folds/ejected 7 = enters airway/below vocal folds/not ejected despite effort 8 = enters airway/below vocal folds/no effort VIDEOFLOROSCOPIC SCALE SCORE (CAPONE): Grade I = aspiration of material that has penetrated into the laryngeal vestibule, intact cough reflex Grade II = aspiration < 10 % of the bolus, intact cough reflex Grade III = aspiration of < 10 % of the bolus, reduced cough reflex or aspiration of > 10 % of the bolus, intact cough reflex Grade IV = aspiration of > 10 % of the bolus, reduced cough reflex - Penetration-Aspiration Scale Score Thin Liquid via teaspoon Result: 1= does not enter airway Thin Liquid via teaspoon Trial 2 Result: 1= does not enter airway Thin Liquid via small single sip from cup Result: 1= does not enter airway Thin Liquid via sequential sips from cup Result: 1= does not enter airway [place] Thick Liquid via small single sip from cup Result: 1= does not enter airway [place] Thick Liquid via small single sip from cup Result: 1= does not enter airway Pudding via teaspoon with esophageal screen Result: 1= does not enter airway Cookie Result: 1= does not enter airway Thin Liquid via single sip from straw with esophageal screen Result: 1= does not enter airway - Oral Phase Labial Seal: No Labial Escape Tongue Control During Bolus Hold: Posterior escape of less than half of bolus Bolus Preparation/Mastication: Slow prolonged chewing/mashing with complete recollection Bolus Transport/Lingual Motion: Delayed initiation of tongue motion Oral Residue: Trace residue lining oral structures - Pharyngeal Phase Initiation of Pharyngeal Swallow: Bolus head in pyriforms - thin sequential cup Soft Palate Elevation: No bolus between soft palate and pharyngeal wall Laryngeal Elevation: Comp. Superior move thyroid cart w/comp. apprx arytenoid cart-epig pet Anterior Hyoid Excursion: Partial anterior movement Epiglottic Movement: Complete inversion Laryngeal Vestibule Closure at Height of Swallow: Complete; no air/contrast in laryngeal vestibule Pharyngeal Stripping Wave: Present - complete Pharyngoesophageal Segment Opening: Parital distension and partial duration; parital obstruction of flow Tongue Base Retraction: Narrow column of contrast between tongue base & post. pharyngeal wall Pharyngeal Residue: Collection of residue within or on pharyngeal structures - Esophageal Phase Esophageal Clearance: Esophageal retention - Diagnosis/Impression Diagnosis: Mild oropharyngeal dysphagia (R13.12), Severe esophageal dysphagia (R13.14) Impression: The oral phase is primarily marked by... -Mildly delayed tongue motion for A-P transport. -Mildly decreased bolus control with posterior loss of <1/2 of liquid boluses to the vallecula prior to swallow onset. Sequential sips of thin initiated in the pyriforms after the first swallow. -Prolonged but adequate mastication. The pharyngeal phase is primarily marked by... -Decreased anterior hyoid excursion, tongue base retraction, and decreased UES opening. -Collection of pharyngeal residue after the swallow in the vallecula and pyriforms. -No laryngeal penetration or aspiration during the swallow. The esophageal phase is primarily marked by... -Severe esophageal retention throughout the mid and lower esophagus with thin liquid by straw and pudding trials. The patient appeared to have little to no esophageal clearance during esophageal screens of these trials. Highly suspect poor esophageal clearance of liquids and solids to be causing the patient early fullness, acute dehydration, and 12-14lb weight loss in the past month. -CP-bar at the level of C5 which does not appear to be impacting bolus clearance through the upper esophageal sphincter -The patient is at risk for reflux aspiration due to severe esophageal retention. Will recommend discontinuing oral intake if experiencing s/s of reflux. - Recommendations Diet: Thin Liquids Comment: Will recommend full (thin) liquid diet until inpatient GI consult and intervention. Ok to advance to Easy to Chew textures / Thin liquids as tolerated if cleared by director of coding following intervention to improve esophageal clearance of liquids and solids. Compensatory Strategies: Small Sips, Slow Rate, Sitting upright, Remain sitting upright for 30 minutes after PO intake Supervision: Distant Supervision - Discontinue drinking if increased s/s of reflux or aspiration. Recommend Repeat Modified Barium Swallow: TBD Need for Skilled Speech Therapy Services: Yes Comment: Will recommend the patient for outpatient dysphagia therapy to address mild deficits in oropharyngeal swallow function. Would consider the patient for review of oropharyngeal strengthening to improve lingual coordination, tongue base retraction, hyoid excursion, and duration of UES opening. Pt reported she has follow up with speech therapy planned. Educated the patient that she is at risk for worsening dysphagia given history of PD. The patient would benefit from thorough education regarding diet recommendations and recommended compensatory strategies. Would recommend speech therapy monitor diet tolerance once cleared by director of coding to upgrade from full liquid diet. Recommended Referrals: GI Consult - Recommend inpatient GI consult to address severe esophageal retention observed with esophageal screen of pudding and sip by straw. Education Completed: 1. Described result of evaluation., 2. Pt understands evaluation & agrees with goals and treatment plan. - Status Active ST Patient: Active - Contact Information [facility] Speech Therapy:: Tracy Caro M.A. [facility]-STORAGE ARCHITECT Speech-Language Pathologist [facility] [address] [place] [address] [email or web address] [phone] 09/30/21 13:24
[2021-09-30] MEDS: 0.9% Saline Lock 10 ML Syringe IV ×2 (13:21→16:20)
--- NOTE | 2021-09-30 13:32 | PHA.DC.MR ---
Pharmacy Service has performed discharge medication reconciliation for this patient. The patient's discharge medication list was reviewed for discrepancies and discrepancies were resolved. Home Medications aspirin 81 mg chewable tablet 81 mg PO DAILY@0800 03/31/13 rotigotine 2 mg/24 hour transdermal 24 hour patch 6 mg TRANSDERM. DAILY 10/24/15 red yeast rice 600 mg capsule 600 mg PO DAILY 07/13/16 albuterol sulfate 90 mcg/actuation aerosol inhaler (ProAir HFA) 2 puff inhalation Q6H PRN SOB 04/18/18 lisinopril 5 mg tablet 5 mg PO DAILY 90 days #90 tabs 04/18/18 PEP device #1 ea 07/15/18 calcium carbonate 500 mg calcium (1,250 mg) tablet (Calcium 500) 1,000 mg PO DAILY 07/30/19 metoprolol tartrate 25 mg tablet 25 mg PO DAILY 07/30/19 sertraline 100 mg tablet 100 mg PO DAILY 07/30/19 clonazepam 0.5 mg tablet 0.5 mg PO BID 08/11/20 albuterol sulfate 2.5 mg/3 mL (0.083 %) solution for nebulization 2.5 mg (3 mL) inhalation Q4H PRN Sob &/Or Wheezing #180 mL 11/10/20 budesonide 1 mg/2 mL suspension for nebulization 1 mg (2 mL) inhalation BID #60 mL 11/10/20 mirtazapine 30 mg tablet 30 mg PO DAILY 05/03/21 carbidopa 31.25 mg-levodopa 125 mg-entacapone 200 mg tablet 1 tab PO TID 09/29/21 carbidopa ER 50 mg-levodopa 200 mg tablet,extended release 1 tab PO QHS 09/29/21
--- NOTE | 2021-09-30 14:42 | CHAPLAIN ---
Type of Pastoral Visit _x__ Initial Visit ___ Follow-up Visit ___ On-call Visit ___ General Patient Visit ___ Spiritual Assessment ___ Family Conference ___ Bereavement ___ Rapid Response ___ Code Blue ___ Other (describe below) Pastoral Care Referral From _x__ Patient ___ Family ___ Nurse ___ Physician ___ Shellacker ___ Turning Lathe Tender ___ Other (describe below) Sacrament/Intervention _x__ Active listening ___ Anointing ___ Mosque ___ Bereavement ___ Communion _x__ Teresa exploration ___ _x__ Life review _x__ Prayer ___ Reconciliation ___ Sacrament of Sick _x__ Supportive presence ___ Wedding ___ Other (describe below) Pastoral Comments good opportunity for life review and casual conversation; pt has been twice and is facing Parkinson's and decline in health; pt has strong teresa with mormonism, family, and friends to support her; pt desire would be able to see or at least talk with her daughter who is in [place]; son lives near
--- NOTE | 2021-09-30 14:43 | CASEMGMT ---
Pt informed admitting RN that she does have LW/POA but unable to bring into the hospital. assistant store manager also spoke w/pt who confirmed she has Healthcare POA and is aware is not on file. AUDREY Garay
--- NOTE | 2021-09-30 15:02 | NURSING ---
pt reports that she has a consultation appointment with Dr. Finley in the next week and states that she has a speech therapy appointment in the next week as well but unsure of exact date/time. Said nurse phoned Dr. Finley office however they are closed on Fridays, said nurse phoned [facility] and they state she has a speech therapy evaluation on SundayOctober 04 at 2:30 pm. pt states her appointment is written down at home for Dr. Finley.
== END 2021-09-30 18:30 | disposition home health service (06) | DRG 641 ==
LOC: ED 15:54 → MS3 16:01
PROVIDERS: Admitting Provider Internal Medicine; Emergency Provider Emergency Medicine; PCP Internal Medicine
DX: E86.0 Dehydration (principal); E44.0 Moderate protein-calorie malnutrition; Z68.1 Body mass index [BMI] 19.9 or less, adult; K83.8 Other specified diseases of biliary tract; R62.7 Adult failure to thrive; F02.80 Dementia in other diseases classified elsewhere, unspecified severity, without behavioral disturbance, psychotic disturbance, mood disturbance, and anxiety; G20 Parkinson's disease; J44.9 Chronic obstructive pulmonary disease, unspecified; K76.0 Fatty (change of) liver, not elsewhere classified; I10 Essential (primary) hypertension; E78.5 Hyperlipidemia, unspecified; G47.33 Obstructive sleep apnea (adult) (pediatric); K57.30 Diverticulosis of large intestine without perforation or abscess without bleeding; I25.10 Atherosclerotic heart disease of native coronary artery without angina pectoris; Z91.19 Patient's noncompliance with other medical treatment and regimen; Z79.82 Long term (current) use of aspirin; Z79.51 Long term (current) use of inhaled steroids; Z79.899 Other long term (current) drug therapy
CPT/HCPCS: 36415; 71045; 74177; 74181; 74230; 80048; 80053; 81001; 83735; 84100; 84443; 85025; 92526; 92610; 92611; 93005; 94640; 97162; 97166; 97802; 99251; 99284; J7030; J7120; Q9967; A4216; G0463

== ENCOUNTER → 2021-10-06 | Outpatient (CLI) | payer MEDICARE, SELFPAY ==
--- NOTE | 2021-10-06 13:00 | US_ITS ---
STUDY: ULTRASOUND OF THE FEMALE PELVIS - COMPLETE REASON FOR EXAM: Female, 81 years old. LLQ PAIN LMP: Patient is postmenopausal. TECHNIQUE: Transabdominal TECHNICAL QUALITY: Adequate. COMPARISON: Comparison is made with prior examination dated 02/08/2021. FINDINGS: The uterus is retroverted and is in a midline position. The uterus measures 5.9 cm x 4 cm x 1.8 cm. Normal uterine cervix. The endometrium is thickened and measures 4 mm in thickness, and is hyperechoic. There is no demonstrated endometrial mass. There is no demonstrated myometrial mass. I.U.D. - The patient does not have an I.U.D. The right ovary is non-visualized. The left ovary is non-visualized. There is no fluid in the cul-de-sac. The pre void volume of the bladder was 257 ml. US/Pelvic (Non ) IMPRESSION: Endometrial thickening measuring 4 mm. Electronically Signed: Charles Burgos MD at 14:42 EDT ,
== END | disposition home or self-care (01) ==
PROVIDERS: PCP Internal Medicine; Referring Provider Internal Medicine; Visit Provider Internal Medicine
DX: R10.32 Left lower quadrant pain (principal)
CPT/HCPCS: 76856

== ENCOUNTER → 2022-11-28 | Outpatient (REF) | payer MEDICARE, SELFPAY ==
[2022-11-28 08:51] LABS: Absolute Lymphocyte Count 0.71 X10^3/uL (0.83-4.51); Absolute Neutrophil Count 2.6 X10^3/uL (2.0-7.7); Basophil# 0.04 X10^3/uL; Eosinophil# 0.22 X10^3/uL; Eosinophils% 5.5 % (0-5); Hematocrit 32.6 % (37-47); Hemoglobin 10.3 g/dL (12.0-15.0); Lymphocyte # 0.71 X10^3/ul (0.83-4.51); Lymphocyte % 17.8 % (19-41); Mean Corp Hgb Conc 31.6 g/dL (32-36); Mean Corpuscular Hgb 31.2 pg (27.0-32.0); Mean Corpuscular Volume 98.8 fL (81-99); Mean Platelet Vol. 10.1 fl (6.2-12.0); Monocyte# 0.45 X10^3/uL; Monocyte% 11.3 % (0-10); NRBC Flagged by Analyzer 0 % (0-5); Neutrophil # 2.56 X10^3/uL (2.7-7.7); Neutrophil % 64.1 % (47-70); Platelet Count 226 K/mm3 (150-450)
[2022-11-28 09:01] LABS: Vitamin B12 528 pg/mL (211-911); Vitamin D,25 Hydroxy 57.4 ng/mL
[2022-11-28 09:07] LABS: AST(SGOT) 34 U/L (15-37); Alanine Aminotransfer ALT/SGPT 9 U/L (13-56); Albumin, Serum 2.8 g/dL (3.2-5.0); Alkaline Phosphatase 92 U/L (45-117); Anion Gap 2 (5-15); BUN 28 mg/dL (7-18); BUN/Creat Ratio 29.9 RATIO (10-20); Calcium,Total 8.5 mg/dL (8.5-10.1); Chloride 111 mmol/L (98-107); Creatinine, Serum 0.94 mg/dL (0.55-1.02); EST Glomerular Filtration Rate 61 mL/min (>60); Est Glom Filt Rate - Afr Amer 74 mL/min (>60); Globulin 2.8 g/dL (2.2-4.2); Glucose 90 mg/dL (74-106); Potassium 4.2 mmol/L (3.5-5.1); Protein, Total 5.6 g/dL (6.4-8.2); Sodium Level 144 mmol/L (136-145)
== END ==
PROVIDERS: PCP Internal Medicine; Visit Provider Internal Medicine
DX: G20.C Parkinsonism, unspecified (principal); R80.9 Proteinuria, unspecified; E55.9 Vitamin D deficiency, unspecified; I27.20 Pulmonary hypertension, unspecified; R63.0 Anorexia; I10 Essential (primary) hypertension; Z79.899 Other long term (current) drug therapy
CPT/HCPCS: 36415; 80053; 82306; 82607; 85025

== ENCOUNTER 2023-01-22 18:39 | Emergency (ER) | payer MEDICARE, SELFPAY ==
[2023-01-22 18:40] VITALS: BP 128/79; PULSE 84; RESP 16; TEMP 36.6; O2SAT 95; BMI 21.6
--- NOTE | 2023-01-22 19:21 | EX.ED.DYSGE1 ---
HPI History of Present Illness Chief Complaint: Confusion Narrative Narrative: 82-year-old female presents via EMS with confusion. Her son is at the bedside. He states that she is a resident of [facility] in assisted living. The whole family came to see her yesterday evening to help decorate her apartment for [employer]. Today, to him, she seems more confused. She was found outside and had taken her garbage can to her neighbors patio. While she may have a history of dementia and is a hospice patient, son relates history that when she has had urinary tract infections previously she seems more confused. He states there is a marked difference in her behavior from yesterday evening to today. He usually gets a call regarding the home health nurse/hospice nurse visiting and gets her vitals and said that her pulse ox was 91%. She presents for evaluation, but should she be discharged, she will be discharged into the memory unit at [facility]. [facility] Medical History (Updated 01/22/23 @ 22:45 by Alfredo Riddle MD) Abnormal findings on diagnostic imaging of heart and coronary circulation Asymptomatic premature ventricular contractions Atherosclerotic heart disease of [place] coronary artery without angina pectoris Bronchiectasis Chest pain, unspecified Coronary artery disease Debility Dilated bile duct Dyspnea on exertion Essential hypertension Family history of heart disease Fatigue History of Parkinson's disease Hyperlipidemia Hypertension Long-term use of high-risk medication Moderate malnutrition Non-rheumatic mitral valve stenosis Non-smoker Nonrheumatic mitral valve prolapse Nonrheumatic mitral valve stenosis with insufficiency MAGED (obstructive sleep apnea) Palpitations Parkinson disease Paroxysmal atrial tachycardia PND (post-nasal drip) Premature atrial contractions Premature ventricular contractions Pure hypercholesterolemia Shortness of breath Home Medications aspirin 81 mg chewable tablet 81 mg PO DAILY@0800 03/31/13 [History Last Taken 09/29/21] rotigotine 2 mg/24 hour transdermal 24 hour patch 6 mg TRANSDERM. DAILY 10/24/15 [History Last Taken 09/28/21] red yeast rice 600 mg capsule 600 mg PO DAILY 07/13/16 [History Last Taken 09/28/21] albuterol sulfate 90 mcg/actuation aerosol inhaler (ProAir HFA) 2 puff inhalation Q6H PRN SOB 04/18/18 [History Last Taken Unknown] lisinopril 5 mg tablet 5 mg PO DAILY 90 days #90 tabs 04/18/18 [History Last Taken 09/29/21] PEP device #1 ea 07/15/18 [Rx Last Taken Unknown] calcium carbonate 500 mg calcium (1,250 mg) tablet (Calcium 500) 1,000 mg PO DAILY 07/30/19 [History Last Taken 09/29/21] metoprolol tartrate 25 mg tablet 25 mg PO DAILY 07/30/19 [History Last Taken 09/28/21] sertraline 100 mg tablet 100 mg PO DAILY 07/30/19 [History Last Taken 09/29/21] clonazepam 0.5 mg tablet 0.5 mg PO BID 08/11/20 [History Last Taken 09/29/21] albuterol sulfate 2.5 mg/3 mL (0.083 %) solution for nebulization 2.5 mg (3 mL) inhalation Q4H PRN Sob &/Or Wheezing #180 mL 11/10/20 [Rx Last Taken 09/27/21] budesonide 1 mg/2 mL suspension for nebulization 1 mg (2 mL) inhalation BID #60 mL 11/10/20 [Rx Last Taken 09/27/21] mirtazapine 30 mg tablet 30 mg PO DAILY 05/03/21 [History Last Taken 09/28/21] carbidopa 31.25 mg-levodopa 125 mg-entacapone 200 mg tablet 1 tab PO TID 09/29/21 [History Last Taken 09/29/21] carbidopa ER 50 mg-levodopa 200 mg tablet,extended release 1 tab PO QHS 09/29/21 [History Last Taken 09/28/21] memantine 10 mg tablet 10 mg PO QPM 01/20/22 [History Last Taken Unknown] Allergy/AdvReac Type Severity Reaction Status Date / Time simvastatin Allergy Unknown Verified 07/21/22 14:14 Sulfa (Sulfonamide Allergy Unknown Verified 07/21/22 14:14 Antibiotics) Family History Father CAD (coronary artery disease) Myocardial infarction Surgical History History of shoulder surgery Social History Smoking Status: Never smoker second hand exposure: No alcohol intake: never substance use type: does not use caffeine: No what type of physical activity do you participate in: walking frequency: 1-2 times per week duration: 30-45 minutes/day seatbelt use: always do you feel safe at home: Yes ROS ROS ED ROS Narrative Limited secondary to mental status. Constitutional: No fever, no chills. Positive confusion per son. HEENT: No sore throat. No neck pain. No loss of vision. No rhinorrhea. Cardiovascular: No chest pain. No palpitations. No pedal edema. Respiratory: No cough, no shortness of breath. Abdominal: No abdominal pain. No nausea. No vomiting. Genitourinary: No dysuria. No hematuria. Musculoskeletal: No myalgias. No arthralgias. Neurologic: No headaches. No dizziness. No lightheadedness. Skin: No rash. No change in color. Psychiatric: No depression. No anxiety. EXAM Physical Exam Narrative Exam Narrative: Afebrile. Vital signs noted. HEENT: Normocephalic. Atraumatic. PERRL, EOMI. Neck soft and supple. No point tenderness or step off. Cardiovascular: Regular rate and rhythm. No murmurs, rubs, or gallops appreciated. Respiratory: No tachypnea. Lungs clear to auscultation bilaterally. Gastrointestinal: Abdomen soft, nontender, with normoactive bowel sounds. No rebound or guarding. Neurological: Awake. Alert. Nonfocal, nonlateralizing. Skin: No rash. Normal color. No pallor. Musculoskeletal: No pedal edema. Full range of motion extremities. Const Vital Signs: 01/22/23 18:40 Temperature 98 F Temperature Source Temporal Pulse Rate 84 Respiratory Rate 16 Blood Pressure 128/79 H Blood Pressure Mean 95 Pulse Ox 95 Oxygen Delivery Method Room Air MDM MDM MDM Narrative Medical decision making narrative: I had a discussion with her son as he is her [employer]ABLE [employer]PER[employer]. He would like and is agreeable to a chest x-ray in 2 views and a urinalysis. I do not feel laboratory work is indicated. Patient will be given apple juice to drink to help produce a urine sample as she urinated just prior to coming. Her pulse ox here is 95% on room air. Chest x-ray will be obtained to rule out pneumonia or pneumothorax. She may have a urinary tract infection causing increased confusion or in the differential is also worsening dementia. I reviewed her chest x-ray in 2 views and see no evidence of acute pneumothorax or pneumonia. I do not feel antibiotics are indicated. I reviewed the radiology report which confirms my independent interpretation and comments on COPD. I reviewed her urinalysis and there are 0-5 WBCs with negative nitrites. She has 15 ketones. At this point in time, I feel she can be discharged to be admitted to the memory unit at [facility], and continue her hospice care. Her son is agreeable to the plan. Disposition is discharged home in stable condition. 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 Labs: Laboratory Results - last 24 hr 01/22/23 21:35 Urine Color [place] Urine Clarity Clear Urine pH 5.0 Ur Specific [place] 1.015 Urine Protein 30 H Urine Glucose (UA) Normal Urine Ketones 15 H Urine Occult Blood 10 H Urine Nitrite Negative Urine Bilirubin 1 H Urine Urobilinogen Normal Ur Leukocyte Esterase 25 H Urine RBC 0 SEEN Urine WBC 0-5 SEEN Ur Squamous Epith Cells 0 SEEN Calcium Oxalate Crystal RARE Urine Bacteria 0 SEEN Urine Mucus RARE Radiography Diagnostic Testing: Clinical Impression(s) from Imaging Studies Chest X-Ray 01/22/23 19:32 IMPRESSION: COPD Electronically Signed: Viraj Riely MD at 20:12 EST Reading Location ID and State: [address] [place] [address] Tel , Service support , Discharge Plan Triage Chief Complaint: Confusion ED Provider: Alfredo Riddle Dx/Rx/DC Orders Clinical Impression: Confusion, Hospice care, Change in mental status, DNR (do not resuscitate) Instructions: ED ALOC, ED Confusion Prescriptions: No Action lisinopril 5 mg tablet 5 mg PO DAILY 90 Days Qty: 90 Patient Comments: albuterol sulfate [ProAir HFA] 90 mcg/actuation HFA aerosol inhaler 2 puff INHALATION Q6H PRN (Reason: SOB) metoprolol tartrate 25 mg tablet 25 mg PO DAILY sertraline 100 mg tablet 100 mg PO DAILY calcium carbonate [Calcium 500] 500 mg calcium (1,250 mg) tablet 1,000 mg PO DAILY (DME) PEP device See Rx Instructions .ROUTE .MEDSUPPLY Qty: 1 0RF Rx Instructions: with training clonazepam 0.5 mg tablet 0.5 mg PO BID mirtazapine 30 mg tablet 30 mg PO DAILY memantine 10 mg tablet 10 mg PO QPM aspirin 81 MG tablet,chewable 81 mg PO DAILY@0800 rotigotine 2 MG patch 6 mg TRANSDERM. DAILY red yeast rice 600 MG capsule 600 mg PO DAILY carbidopa-levodopa 50-200 mg tablet extended release 1 tab PO QHS [id number] 31.25-125-200 mg tablet 1 tab PO TID albuterol sulfate 2.5 mg /3 mL (0.083 %) solution for nebulization 2.5 mg inhalation Q4H PRN (Reason: Sob &/Or Wheezing) Qty: 180 3RF budesonide 1 mg/2 mL suspension for nebulization 1 mg inhalation BID Qty: 60 6RF Primary Care Provider: Diane Christianson Referrals: Diane Christianson MD [Primary Care Provider] - As soon as possible Disposition Disposition: Home, Self Care
--- NOTE | 2023-01-22 19:32 | RAD_ITS ---
STUDY: X-RAY CHEST REASON FOR EXAM: Female, 82 years old. Shortness of breath TECHNIQUE: Single frontal view of the chest. COMPARISON: September 29, 2021 chest x-ray FINDINGS: Lungs are hyperaerated. The lungs are clear and expanded. There is no demonstrated pleural abnormality. Normal size heart. Normal mediastinum and osito. Normal visualized pulmonary arteries. Normal visualized aortic arch and descending thoracic aorta. Normal visualized thoracic spine. Normal visualized ribs, clavicles, and shoulders. There is no demonstrated abnormality of the visualized soft tissue structures of the upper abdomen. RAD/Chest PA and Lateral IMPRESSION: COPD Electronically Signed: Viraj Riley MD at 20:12 EST ,
[2023-01-22 21:43] LABS: Bacteria 0 SEEN /hpf (None Seen); Red Blood Cells-Urine 0 SEEN /hpf (0-5); Squamous Epithelial Cells - UA 0 SEEN /hpf (5-10)
[2023-01-22 21:49] LABS: Color, Urine Amber (Yellow); Glucose, Dipstick Normal (Normal); Ketone-Dipstick 15 mg/dl (Negative); Leukocyte Esterase-Dipstick 25 /ul (Negative); Nitrite-Dipstick Negative (Negative); Occult Blood-Urine 10 /ul (Negative); Protein-Dipstick 30 mg/dl (Negative); Specific Gravity, Urine 1.015 (1.002-1.030); Urine Clarity Clear (Clear); Urine Urobilinogen Normal (Normal)
[2023-01-22 21:52] LABS: Urine Bilirubin Dipstick 1 mg/dL (Negative)
[2023-01-22 22:05] LABS: Calcium Oxalate Crystals Ur RARE /hpf (<or=2+); Mucous, Urine RARE /hpf (<or=2+); White Blood Cells 0-5 SEEN /hpf (0-5)
[2023-01-22 22:51] VITALS: BP 112/87; PULSE 74; RESP 16; O2SAT 99
== END 2023-01-22 22:52 | disposition home or self-care (01) ==
PROVIDERS: Emergency Provider Emergency Medicine; PCP Internal Medicine; Visit Provider Emergency Medicine
DX: R41.82 Altered mental status, unspecified (principal); J44.9 Chronic obstructive pulmonary disease, unspecified; I25.10 Atherosclerotic heart disease of native coronary artery without angina pectoris; G47.33 Obstructive sleep apnea (adult) (pediatric); Z66 Do not resuscitate
CPT/HCPCS: 71046; 81001; 99282